=== PATIENT | male | born 1975 | race Caucasian/White ===

== ENCOUNTER 2019-11-13 12:48 | Emergency (ER) | payer OTHER, SELFPAY ==
--- NOTE | 2019-11-13 | CT_ITS ---
EXAMINATION: CT ABDOMEN AND PELVIS WITH CONTRAST CLINICAL INFORMATION: Abdominal pain COMPARISON: None TECHNIQUE: Multidetector volumetric images were obtained from the superior aspect of the liver through the pubic symphysis following administration 85 mL of Omnipaque 350 intravenous contrast. Sagittal and coronal reformatted images were obtained on the technologist's workstation. Oral contrast: No This CT examination was performed using dose optimization techniques as appropriate, variously including the following: *Automated exposure control *Adjustment of mA and/or kV according to patient size (this includes techniques or standardized protocols for targeted exams where dose is matched to indication/reason for exam; i.e. extremities or head) *Use of iterative reconstruction technique DLP: 430 mGy-cm FINDINGS: LUNG BASES: The visualized lung bases are unremarkable. LIVER, GALLBLADDER, AND BILIARY TREE: The liver is normal in size, shape, and attenuation. No focal hepatic lesion or biliary ductal dilatation is present. The gallbladder is unremarkable with no evidence of radiopaque gallstones, gallbladder wall thickening, or obvious pericholecystic inflammatory changes. PANCREAS: Unremarkable. SPLEEN: Unremarkable. ADRENAL GLANDS: Unremarkable. KIDNEYS AND URETERS: The kidneys are normal in size, shape, and attenuation. No hydronephrosis, hydroureter, or calculi seen. No perinephric stranding. BLADDER: Unremarkable. GASTROINTESTINAL TRACT: The small and large bowel are unremarkable. The appendix is unremarkable. ABDOMINAL WALL: No significant hernia is appreciated. LYMPH NODES: Normal. VASCULAR: Unremarkable. PELVIC VISCERA: Unremarkable. OSSEOUS STRUCTURES: Multilevel degenerative spondylosis of the dorsal spine. IMPRESSION: No acute abnormality CT scan abdomen pelvis.
[2019-11-13 13:50] VITALS: BP 105/71; PULSE 64; RESP 18; TEMP 37.2; O2SAT 100; BMI 25.0
[2019-11-13 16:23] VITALS: BP 122/62; PULSE 55; RESP 16
[2019-11-13 16:35] LABS: MANUAL DIFF FLAG NO
[2019-11-13 16:36] LABS: Basophils Percent Auto 0.3 % (0-2); Eosinophils Absolute Auto 0.1 X10*3/uL (0.0-0.4); Eosinophils Percent Auto 1.4 % (0-4); Hematocrit 49.3 % (42-52); Hemoglobin 16.2 g/dl (14.0-18.0); Imm Gran Abs Auto 0.02 X10*3/uL (0.00-0.03); Imm Gran Pct Auto 0.3 % (0.0-0.4); Lymphocytes Absolute Auto 2.1 X10*3/uL (1.2-4.9); Mean Corpuscular HGB Conc 32.9 g/dl (31.0-36.0); Mean Corpuscular Volume 94.3 fL (80-98); Mean Platelet Volume 11.8 fL (9.4-12.4); Monocytes Absolute Auto 0.5 X10*3/uL (0.1-1.2); Monocytes Percent Auto 8.2 % (2-11); Neutrophils Absolute Auto 3.9 X10*3/uL (2.0-8.3); Neutrophils Percent Auto 58.8 % (45-73); Platelet Count 165 X10*3/uL (160-400); Red Blood Count 5.23 X10*6/uL (4.60-5.80); Red Cell Distribution Width 12.5 % (11.0-16.0); White Blood Count 6.6 X10*3/uL (4.8-10.8)
[2019-11-13] MEDS: 0.9 % Sodium Chloride 1,000 ML 999 ML IVCONT (16:55)
[2019-11-13] MEDS: Ketorolac Tromethamine 15 MG/ML VIAL IV (16:55)
--- NOTE | 2019-11-13 17:02 | ED_ITS ---
HPI - General Adult General Chief complaint: General Medical Stated complaint: ABD PAIN Time Seen by Provider: 11/13/19 15:55 Source: patient Mode of arrival: ambulatory Limitations: language barrier (Senegalese-speaking) History of Present Illness HPI narrative: 44yoM c no PMHx presenting to the ED with complaints of headaches, body aches, back pain, abdominal pain for 1 week worse today. With associated chills. Denies any fevers, nausea / vomiting, neck pain or stiffness, chest pain or shortness of breath, cough, sore throat or nasal congestion, diarrhea or constipation, dysuria, hematuria, penile discharge or any other symptoms complaints or concerns at this time. Denies any sick contacts. Denies recent travel. Related Data Previous Rx's Medication Instructions Recorded cyclobenzaprine 10 mg PO TID PRN #10 tab 11/13/19 naproxen 500 mg PO BID PRN #14 tab 11/13/19 Allergies Allergy/AdvReac Type Severity Reaction Status Date / Time No Known Allergies Allergy Verified 11/13/19 13:49 [No Known Allergies*] Review of Systems Review of Systems: Yes all other systems are reviewed and are negative Constitutional: Constitutional: Reports as per HPI, Reports body ache(s), Reports chills, Denies excessive sweating, Denies fatigue, Denies fever(s), Reports headache(s), Denies lethargy, Denies malaise, Denies poor appetite and Denies weakness Eyes: Eyes: Reports as per HPI and Denies change in vision ENT: Reports as per HPI, Denies dysphagia, Denies dizziness, Denies ear discharge, Reports headache(s), Denies hearing loss, Denies nasal congestion, Denies nasal discharge, Denies neck pain, Denies nose pain, Denies odynophagia, Denies sinus pressure, Denies sore throat and Denies throat swelling Cardiovascular: Cardiovascular: Reports as per HPI, Denies Abdominal Distension, Denies cool extremities, Denies painful fingertips, Denies chest pain, Denies syncope, Denies rapid heart rate, Denies pedal edema, Denies edema, Denies leg edema, Denies lightheadedness, Denies radiating jaw, neck or arm pain, Denies palpitations, Denies dyspnea, Denies dyspnea on exertion, Denies orthopnea and Denies paroxysmal nocturnal dyspnea Respiratory: Respiratory: Reports as per HPI, Denies chest congestion, Denies cough, Denies dyspnea, Denies dyspnea on exertion and Denies wheezing Gastrointestinal: Gastrointestinal: Reports as per HPI, Denies belching, Denies melena, Denies bloating, Denies hematochezia, Denies change in bowel habits, Denies tenesmus, Denies change in stool character, Denies constipation, Denies GI cramping, Denies dysphagia, Denies excessive flatus, Denies early satiety, Denies dyspepsia, Denies heartburn, Denies diarrhea, Denies nausea, Denies odynophagia, Denies vomiting and Denies hematemesis Genitourinary: Genitourinary: Reports as per HPI, Denies hematospermia, Denies hematuria, Denies oliguria, Denies difficulty urinating, Denies difficulty with ejaculations, Denies erectile dysfunction, Denies genital lesions, Denies genital pain, Denies dysuria, Denies flank pain, Denies nocturia, Denies painful ejaculations, Denies penile discharge, Denies scrotal swelling, Denies testicular mass, Denies testicular pain, Denies urinary frequency, Denies urinary hesitancy, Denies urinary incontinence and Denies urinary urgency Musculoskeletal: Musculoskeletal: Reports as per HPI, Denies back pain, Denies atrophy, Denies deformity, Denies joint swelling, Reports limited range of motion (to r shoulder due to pain ), Denies loss of height, Denies muscle weakness, Denies neck pain, Denies numbness, Denies radiating pain into limb, Denies stiffness and Denies tingling Integumentary/Breasts: Skin/Breast: Reports as per HPI Neurologic: Reports as per HPI, Denies dizziness, Denies syncope, Reports headache(s), Denies numbness, Denies tingling and Denies weakness Psychiatric: Psychiatric: Reports as per HPI Endocrine: Endocrine: Reports as per HPI, Denies excessive sweating, Denies fatigue and Denies palpitations Allergic/Immunologic: Allergic/Immunologic: Reports as per HPI, Denies throat swelling and Denies wheezing PMFSH Past Medical History Attestation statement: The following information was validated with the patient. Social History Social History Alcohol intake: never Smoking Status: Former smoker Use of substances other than those prescribed or required for medical reasons: No Advance Directives: No Advance Directives Information Provided: Yes Physical Exam Vital Signs and I&O and Narrative: Vital Signs and I&O: Vital Signs Temp 98.9 F 11/13/19 13:50 Pulse 55 11/13/19 16:23 Resp 16 11/13/19 16:23 BP 122/62 11/13/19 16:23 Pulse Ox 100 11/13/19 13:50 Intake & Output 11/12/19 11/13/19 11/13/19 18:59 06:59 18:59 Weight 68.039 kg Body Mass Index 25.0 Const: General: cooperative, healthy appearing, comfortable, no acute distress, well developed, alert, awake and Physically active Nutritional Appearance: average body habitus and well nourished [place] entation/consciousness: patient oriented x3 Limitations: no limitations HENMT: Head: Yes normal to inspection, Yes No palpable skull fracture present, Yes normocephalic and Yes atraumatic Ears: hearing grossly normal bilaterally General nose exam: Normal external nose present Face and sinus: Yes normal facial exam Mouth: moist mucous membranes Eyes: General: appearance normal, both eyes and all related structures Visual Bautista: normal visual bautista by confrontation Alignment and Position: alignment normal Periorbital: periorbital findings normal Eyelids: Yes eyelids normal Conjunctivae: conjunctivae normal Sclerae: sclerae normal Pupils: Equal, round and reactive pupils present EOM: EOMs intact bilaterally Neck: Neck: Yes normal visual inspection, Yes full ROM, Yes no lymphadenopathy, Yes no meningeal signs, Yes trachea midline and Yes supple Chest: Chest palpation & inspection: normal inspection of the chest Resp: Effort & Inspection: normal respiratory effort and able to speak in complete sentences Auscultation: clear to auscultation bilaterally, no crackles, no rales, no rhonchi and no wheezes Cardio: Rate: regular rate Rhythm: regular rhythm Heart sounds: S1 normal heart sound present and S2 normal heart sound present Peripheral pulses: Peripheral pulses 2+ throughout GI: Inspection: Yes normal to inspection Palpation (GI): Soft to palpation, Tenderness to palpation present (GI) ( Diffusely) not at McBurney's point, Kc's sign negative, obturator sign negative, psoas sign negative, with no rebound tenderness and Rovsing's sign negative and No hepatosplenomegaly present Percussion: Yes normal to percussion Auscultation: normal bowel sounds : General: Yes no CVA tenderness Back/Spine/Pelvis: Back: no CVA tenderness Cervical Spine: normal cervical lordosis and cervical ROM normal Thoracic/Lumbar Spine: thoracic and lumbar spine normal to inspection and thoraco-lumbar ROM normal Skin: General skin exam: no rashes or lesions noted, elasticity normal and t urgor normal Trauma: no lacerations or abrasions Wounds: no wounds Hair: normal Nails: normal Neuro: General: patient oriented x3 and no meningeal signs Cranial nerves: Yes CN's II-XII intact bilaterally and Yes Equal, round and reactive pupils present Cognition (Neuro): normal cognition Gait exam (Neuro): Normal gait present Motor exam (neuro): 5/5 motor strength present throughout Extrem: General: Yes normal to inspection, Yes full ROM, Yes capillary refill normal, Yes no clubbing, cyanosis or edema, No no pedal edema, No no calf tenderness, Yes normal gait and No edema Right upper extremity: normal to inspection, full ROM and normal capillary refill; no edema Left upper extremity: normal to inspection, full ROM and normal capillary refill; no edema Right lower extremity: normal to inspection, full ROM and normal capillary refill; no edema Left lower extremity: normal to inspection, full ROM and normal capillary refill; no edema Psych: Appearance: grossly normal and well kempt Mental Status: mental status grossly normal Speech and movement: Normal speech and movement present and Clear speech present Affect: normal affect Attitude: cooperative Thought process: Normal thought process present Thought content: Normal thought content present Insight: Good insight present (Psych) Judgement: Good judgement present (Psych) Course Course Course Narrative: All labs within normal limits. CT scan of abdomen pelvis within normal limits no acute processes noted. UA within normal limits no evidence of UTI. Will DC home with symptomatic treatment along with instructions to return if any new or worsening symptoms and to follow up with primary care provider. Patient understands agrees with this plan. I offered Covid 19 swab testing although patient refused. Medical Decision Making MDM Narrative Medical decision making narrative: 44yoM c no PMHx presenting to the ED with complaints of headaches, body aches, back pain, abdominal pain for 1 week worse today. With associated chills. Denies any fevers, nausea / vomiting, neck pain or stiffness, chest pain or shortness of breath, cough, sore throat or nasal congestion, diarrhea or constipation, dysuria, hematuria, penile discharge or any other symptoms complaints or concerns at this time. Denies any sick contacts. Denies recent travel. - Concern for Viral Syndrome vs cholelithiasis vs appendicitis. - Plan: Labs, CT scan of abd/pelvis c IV contrast. UA. Provide IVF's and [place] l for symptomatic relief Then re-evaluate. Lab Data Result diagrams: 11/13/19 16:31 11/13/19 16:31 Labs: Lab Results 11/13/19 11/13/19 11/13/19 Range/Units 16:31 16:31 16:31 WBC 6.6 (4.8-10.8) X10*3/uL RBC 5.23 (4.60-5.80) X10*6/uL Hgb 16.2 (14.0-18.0) g/dl Hct 49.3 (42-52) % MCV 94.3 (80-98) fL MCH 31.0 (27.0-33.0) pg MCHC 32.9 (31.0-36.0) g/dl RDW 12.5 (11.0-16.0) % Plt Count 165 (160-400) X10*3/uL MPV 11.8 (9.4-12.4) fL Immature Gran % (Auto) 0.3 (0.0-0.4) % Neut % (Auto) 58.8 (45-73) % Lymph % (Auto) 31.0 (20-40) % [place] % (Auto) 8.2 (2-11) % Eos % (Auto) 1.4 (0-4) % Baso % (Auto) 0.3 (0-2) % Neut # (Auto) 3.9 (2.0-8.3) X10*3/uL Lymph # (Auto) 2.1 (1.2-4.9) X10*3/uL [place] # (Auto) 0.5 (0.1-1.2) X10*3/uL Eos # (Auto) 0.1 (0.0-0.4) X10*3/uL Baso # (Auto) 0.0 (0.0-0.2) X10*3/uL Abs Immat Gran (auto) 0.02 (0.00-0.03) X10*3/uL Absolute Nucleated RBC 0.000 (0.0-0.012) X10*3/uL Nucleated RBC % (auto) 0.0 (0.0-0.2) /100WBC Hold Blue Top SEE NOTE Sodium 139 (135-145) mmol/L Potassium 4.7 (3.3-5.1) mmol/l Chloride 103 (96-108) mmol/L Carbon Dioxide 27 (22-29) mmol/L Anion Gap 14 (12-20) BUN 13 (9-16) mg/dL Creatinine 0.88 (0.5-1.4) mg/dL Estim Creat Clear Calc 94.1 Estimated GFR > 60 Random Glucose 84 (60-115) mg/dL Calcium 9.8 (8.4-10.2) mg/dL Total Bilirubin 0.5 (0.0-1.0) mg/dL AST 37 (5-37) U/L ALT 43 H (0-40) U/L Alkaline Phosphatase 94 (39-117) U/L Total Protein 8.0 (6.5-8.0) g/dL Albumin 4.4 (3.5-5.0) g/dL Lipase 6 L (8-78) U/L Discharge Plan Discharge Clinical Impression: Abdominal pain in male Patient Disposition: Home, Self-Care Instructions: Abdominal Pain (ED) Prescriptions: New naproxen 500 mg tablet 500 mg PO BID PRN (Reason: pain) Qty: 14 RF: 0 cyclobenzaprine 10 mg tablet 10 mg PO TID PRN (Reason: pain) Qty: 10 RF: 0 Stand Alone Forms: Work/School Release Print Language: Senegalese
[2019-11-13 17:06] LABS: Alanine Aminotransferase 43 U/L (0-40); Albumin Level 4.4 g/dL (3.5-5.0); Alkaline Phosphatase 94 U/L (39-117); Anion Gap 14 (12-20); Aspartate Amino Transferase 37 U/L (5-37); Bilirubin Total 0.5 mg/dL (0.0-1.0); Blood Urea Nitrogen 13 mg/dL (9-16); Calcium 9.8 mg/dL (8.4-10.2); Carbon Dioxide 27 mmol/L (22-29); Chloride 103 mmol/L (96-108); Creatinine Clr Calc Pharmacy 94.1; Estimated Glomerular Filt Rate > 60; Glucose Random 84 mg/dL (60-115); Lipase 6 U/L (8-78); Potassium 4.7 mmol/l (3.3-5.1); Sodium 139 mmol/L (135-145)
[2019-11-13] MEDS: iohexoL 350 MG/ML 100 ML INFUS..BTL IV (17:24)
--- NOTE | 2019-11-13 17:25 | PC.NURSE ---
pt reports improvement in pain after medicated. waiting ct results.
== END 2019-11-13 18:30 | disposition home or self-care (01) ==
PROVIDERS: Physician Assistant Medical; Emergency Provider Emergency Medicine
DX: R10.9 Unspecified abdominal pain (principal); M54.5 Low back pain; Z87.891 Personal history of nicotine dependence; R51.9 Headache, unspecified
CPT/HCPCS: 36415; 74177; 80053; 83690; 85025; 96361; 96374; 99284; J1885

== ENCOUNTER 2020-04-28 08:20 | Emergency (ER) | payer OTHER, SELFPAY ==
[2020-04-28 09:06] VITALS: BP 122/61; PULSE 57; RESP 16; TEMP 36.4; O2SAT 100; BMI 28.0
--- NOTE | 2020-04-28 09:18 | ED_ITS ---
HPI - General Adult General Chief complaint: General Medical Stated complaint: sore throat and multiple complaints Time Seen by Provider: 04/28/20 08:56 Source: patient and family Mode of arrival: ambulatory Limitations: language barrier History of Present Illness HPI narrative: 44 y/o male presenting to the ER with 1 week of sore throat. He denies fever, chills, cough, headaches, N/V/D, abdominal pain. 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 His daughter also has a sore throat and she is getting her physical tomorrow. No known exposure to COVID-19. No difficulty with eating or drinking. He also reports bilateral hand pain R>L for the last several months. He thinks he has arthritis given his line of work. 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 He denies trauma. He denies swelling, redness or skin changes. He has full ROM of all of his fingers and both wrists but states when he uses his right hand too much he has pain in his wrist and fingers, mostly the index-pinky with intermittent tingling. He has been taking Advil intermittent with some mild improvement. In addition he report the bottom of his right foot is painful, which he attributes to his work boots. No trauma, no hx DM, no wounds. MD complaint: sore throat, hand and foot pain Onset (ago): week(s) Location: mouth, left, right and upper extremity Radiation: non-radiation Severity: moderate Quality: aching Pain Consistency: constant Relieving factors: medication Exacerbating factors: movement Associated symptoms: denies other symptoms Treatments prior to arrival: none Related Data Previous Rx's Medication Instructions Recorded cyclobenzaprine 10 mg PO TID PRN #10 tab 11/13/19 naproxen 500 mg PO BID PRN #14 tab 11/13/19 ibuprofen 600 mg PO Q8H PRN #20 tab 04/28/20 Allergies Allergy/AdvReac Type Severity Reaction Status Date / Time No Known Allergies Allergy Verified 11/13/19 13:49 [No Known Allergies*] Review of Systems Review of Systems: Constitutional: No Fever, No Chills ENT/Mouth: + sore throat, No Rhinorrhea, No Swallowing Difficulty Eyes: No Eye Pain, No Swelling, No Redness Cardiovascular: No Chest Pain, No SOB Respiratory: No Cough, No Sputum Gastrointestinal: No Nausea, No Vomiting, No Diarrhea, No abdominal Pain Musculoskeletal: +joint pain, No Myalgias Skin: No Skin Lesions, No rash Neuro: No Weakness, No Numbness Heme/Lymph: No Bruising, No Lymphadenopathy PMFSH Past Medical History Medical History (Updated 04/28/20 @ 10:06 by ZAN Hahn) No known health problems Social History Social History Alcohol intake: never Smoking Status: Current every day smoker Smoked in Last 30 Days: Yes Use of substances other than those prescribed or required for medical reasons: No Advance Directives: No Advance Directives Information Provided: No Physical Exam Vital Signs: Vital Signs: Last Vital Signs Temp 97.6 F 04/28/20 09:06 Pulse 57 04/28/20 09:06 Resp 16 04/28/20 09:06 BP 122/61 04/28/20 09:06 Pulse Ox 100 04/28/20 09:06 Body Mass Index 28.0 Appearance: Alert. Oriented X3. No acute distress. HEENT: normal external inspection, posterior oropharynx with mild erythema, mild tonsilliar swelling without exudate, uvula midline. normal TM's bilaterally. CVS: Normal heart rate and rhythm. Pulses normal. Respiratory: No respiratory distress. Skin: Skin warm and dry. Normal skin color. Normal skin turgor. No rashes. Extremities: bilateral hands/wrists are normal to inspection with full ROM of all 10 fingers and bilateral wrists, no wrist tenderness. on right hand digits 3-5 with mild tenderness of PIP joints & DIP joints, no nodules. NV intact distally, cap refill <3 seconds. 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 Neuro: Oriented X 3. No motor deficit. No sensory deficit. Course Course Course Narrative: 44 y/o male presenting with multiple complaints today: 1: sore throat x1 week. will swab for Strep and COVID. 2. bilateral hand and wrist pain, likely due to overuse, possible early arthritis. he was counseled on management and need to follow up with a PCP. 3. foot pain. right foot with minimal arch, advised to get OTC arch support to help with pain while wearing his work boots. Reevaluation(s) Reevaluation #1: COVID negative. Strep negative. Patient and counseled on results and management. All questions were answered. PCP referral given. Stable for discharge. Medical Decision Making Lab Data Labs: Lab Results 04/28/20 Range/Units 09:27 COVID-19 ([facility]) Negative (Negative) COVID-19 Clin Com See Note Critical Care Time Critical Care Time Critical Care Time: No Discharge Plan Discharge Clinical Impression: Bilateral hand pain Pharyngitis Qualifiers: Pharyngitis/tonsillitis etiology: unspecified etiology Qualified Code(s): J02.9 - Acute pharyngitis, unspecified Patient Disposition: Home, Self-Care Instructions: Arthralgia (ED) Additional Instructions: Your COVID test was NEGATIVE. Your rapid Strep test was NEGATIVE. If the culture ends up positive in the next 1-2 days we will call you and start you on antibiotics. Recommend warm salt water gargles several times per day for your sore throat. Recommend over the counter Chloraseptic spray & Cepacol lozenges to help with throat pain. Take Tylenol as needed for your symptoms. Recommend shoe orthotic inserts to support your arch. Your feet are very flat and need arch support. Any Pharmacy carries these, Recommend Dr. Sin. Wear the wrist splint on your right hand at night and as needed during the day. Take Ibuprofen as prescribed as needed for pain. Take with food. Follow up with a Primary Care Doctor. Prescriptions: New ibuprofen 600 mg tablet 600 mg PO Q8H PRN (Reason: pain) Qty: 20 RF: 0 No Action naproxen 500 mg tablet 500 mg PO BID PRN (Reason: pain) Qty: 14 RF: 0 cyclobenzaprine 10 mg tablet 10 mg PO TID PRN (Reason: pain) Qty: 10 RF: 0 Stand Alone Forms: Work/School Release
[2020-04-28 09:57] LABS: COVID-19 Test Negative (Negative)
== END 2020-04-28 10:27 | disposition home or self-care (01) ==
PROVIDERS: Physician Assistant; Emergency Provider Emergency Medicine
DX: J02.9 Acute pharyngitis, unspecified (principal); Z20.822 Contact with and (suspected) exposure to COVID-19; M79.642 Pain in left hand; M79.641 Pain in right hand; M21.41 Flat foot [pes planus] (acquired), right foot; M79.671 Pain in right foot; F17.200 Nicotine dependence, unspecified, uncomplicated
CPT/HCPCS: 29125; 36415; 87071; 87635; 87880; 99283

== ENCOUNTER 2020-05-16 08:40 | Outpatient (REF) | payer OTHER, SELFPAY | END 2020-05-16 08:41 | disposition home or self-care (01) | LOC: HO.LAB 08:40 | PROVIDERS: Visit Provider Internal Medicine | DX: Z20.822 Contact with and (suspected) exposure to COVID-19 (principal) | CPT/HCPCS: C9803; U0003; U0005 ==

== ENCOUNTER 2020-06-17 15:56 | Outpatient (REF) | payer OTHER, SELFPAY | END 2020-06-17 15:57 | disposition home or self-care (01) | LOC: HO.LAB 15:56 | PROVIDERS: Visit Provider Internal Medicine | DX: Z20.822 Contact with and (suspected) exposure to COVID-19 (principal) | CPT/HCPCS: C9803; U0003; U0005 ==

== ENCOUNTER 2020-06-24 10:35 | Outpatient (REF) | payer OTHER, SELFPAY ==
[2020-06-24 11:15] LABS: COVID-19 Test Negative (Negative)
== END 2020-06-24 10:36 | disposition home or self-care (01) ==
LOC: HO.LAB 10:35
PROVIDERS: Visit Provider Internal Medicine
DX: Z20.822 Contact with and (suspected) exposure to COVID-19 (principal)
CPT/HCPCS: 36415; 87635; C9803

== ENCOUNTER 2021-01-30 07:56 | Emergency (ER) | payer OTHER, SELFPAY ==
--- NOTE | ~2021-01-30 | XR_ITS ---
EXAMINATION: XR LUMBOSACRAL SPINE CLINICAL INFORMATION: Low back pain. COMPARISON: CT abdomen pelvis 11/13/2019. TECHNIQUE: Three views of the lumbosacral spine. FINDINGS: 5 lumbar type vertebral bodies are identified. 2 mm degenerative type retrolisthesis of L5 on S1 is noted. Moderate intervertebral disc space narrowing is present at L5-S1. Mild intervertebral disc space narrowing L4-L5. Mild multilevel anterior endplate osteophytosis of the lumbar spine with findings most present L4-L5. No arthropathic changes of the sacroiliac joints. No dystrophic soft tissue calcifications. XR/XR lumbar spine 2-3V IMPRESSION: *L5-S1 moderate intervertebral disc space narrowing and minimal degenerative retrolisthesis consistent with underlying degenerative disc disease. *L4-L5 mild intervertebral disc space narrowing suspicious for underlying degenerative disc disease.
[2021-01-30 08:03] VITALS: BP 127/62; PULSE 62; RESP 16; TEMP 36.2; O2SAT 98; BMI 27.4
--- NOTE | 2021-01-30 08:53 | ED.BACK ---
HPI - Back Pain/Injury General Chief Complaint: Back Pain/Injury Stated Complaint: back pain Time Seen by Provider: 01/30/21 08:23 Source: patient Mode of arrival: ambulatory Limitations: no limitations History of Present Illness HPI Narrative: 45-year-old male with no past medical history presents to ED for low back pain for 1 week that occurred after heavy lifting. Patient states since then having pain on movement of back and lifting anything heavy. Patient states he continue going to work which made his back pain worse due to patient will consist of heavy lifting of objects. Patient denies any urinary/bowel incontinence. Patient denies any HIV, hepatitis-C, or any other immunocompromised diseases. Patient denies any IV drug use. Patient denies any abdominal pain, nausea, vomiting, fever, chills, flank pain, dysuria, or hematuria. Related Data Previous Rx's Medication Instructions Recorded cyclobenzaprine 10 mg tablet 10 mg PO TID PRN #10 tab 11/13/19 naproxen 500 mg tablet 500 mg PO BID PRN #14 tab 11/13/19 ibuprofen 600 mg tablet 600 mg PO Q8H PRN #20 tab 04/28/20 cyclobenzaprine 10 mg tablet 10 mg PO TID PRN #18 tab 01/30/21 naproxen 500 mg tablet 500 mg PO BID PRN 10 Days #20 tab 01/30/21 Allergies Allergy/AdvReac Type Severity Reaction Status Date / Time No Known Allergies Allergy Verified 11/13/19 13:49 [No Known Allergies*] Review of Systems Review of Systems: Yes all other systems are reviewed and are negative Constitutional: Constitutional: Reports as per HPI and Reports no additional constitutional complaints Eyes: Eyes: Reports as per HPI and Reports no additional eye complaints ENT: Reports system reviewed and no additional complaints, except as documented and Reports as per HPI Cardiovascular: Cardiovascular: Reports as per HPI and Reports no additional cardiovascular complaints Respiratory: Respiratory: Reports as per HPI and Reports no additional respiratory complaints Gastrointestinal: Gastrointestinal: Reports as per HPI and Reports no additional gastrointestinal complaints Genitourinary: Genitourinary: Reports no additional male genitourinary complaints and Reports as per HPI Musculoskeletal: Musculoskeletal: Reports no additional musculoskeletal complaints, Reports as per HPI and Reports back pain Neurologic: Reports system reviewed and no additional complaints, except as documented and Reports as per HPI Psychiatric: Psychiatric: Reports no additional psychiatric complaints and Reports as per HPI [facility] Past Medical History Medical History (Updated 01/30/21 @ 10:10 by ZAN Barnes) No known health problems Social History Social History Alcohol intake: never Advance Directives: No Advance Directives Information Provided: No Physical Exam Vital Signs: Vital Signs: Last Vital Signs Temp 97.1 F 01/30/21 08:03 Pulse 62 01/30/21 08:03 Resp 16 01/30/21 08:03 BP 127/62 01/30/21 08:03 Pulse Ox 98 01/30/21 08:03 BMI result Body Mass Index 27.4 Const: General: cooperative, healthy appearing, comfortable and no acute distress Orientation/consciousness: patient oriented x3 HENMT: Head: Yes normal to inspection, Yes No palpable skull fracture present, Yes normocephalic, Yes atraumatic and No abrasion Eyes: General: appearance normal, both eyes and all related structures Neck: Neck: Yes normal visual inspection, Yes full ROM, Yes no lymphadenopathy, Yes no meningeal signs, Yes trachea midline, Yes supple, No anterior neck swelling and No tender Chest: Chest palpation & inspection: normal inspection of the chest and normal palpation of entire chest wall Resp: Effort & Inspection: normal respiratory effort and able to speak in complete sentences Cardio: Jugular venous distension: no JVD Heart sounds: S1 normal heart sound present and S2 normal heart sound present GI: Inspection: Yes normal to inspection and No abdominal wall ecchymosis Palpation (GI): Soft to palpation, not firm, nontender, no guarding and not rigid : General: No CVA tenderness and Yes no CVA tenderness Back/Spine/Pelvis: Other: Positive for pain on range of motion of back Back: no CVA tenderness, No CVA tenderness and back tenderness (bilateral paraspinous tenderness and lumbar spine tenderness) Skin: General skin exam: no rashes or lesions noted and elasticity normal Neuro: General: patient oriented x3, gait normal, no meningeal signs and CN's II-XI intact bilaterally Cranial nerves: Yes CN's II-XII intact bilaterally Extrem: General: Yes normal to inspection and Yes full ROM Psych: Appearance: grossly normal, well kempt and not disheveled Course Course Course Narrative: Lumbar spine x-ray ordered Reevaluation(s) Reevaluation #1: Lumbar x-ray shows degenerative arthritis. Patient will be discharged with pain medications. Not suspecting cauda equina syndrome or epidural abscess. Time: 10:08 MDM - Back Pain/Injury MDM Narrative Medical decision making narrative: Degenerative disc disease of spine Discharge Plan Discharge Clinical Impression: Lumbar radiculopathy, Degenerative disc disease at L5-S1 level Patient Disposition: Home, Self-Care Instructions: Lumbar Radiculopathy (ED), Degenerative Disc Disease (ED) Additional Instructions: La radiograf?a de la columna lumbar muestra jose enfermedad degenerativa del disco. Debe hacer un seguimiento con el proveedor de atenci?n primaria para que lo deriven a fisioterapia o manejo del dolor, si est? indicado. Regrese al servicio de urgencias inmediatamente si empeora el dolor de espalda, incontinencia urinaria / intestinal, par?lisis de las extremidades inferiores, dolor abdominal, n?useas, v?mitos, dolor en el costado, disuria, hematuria o cualquier otro s?ntoma que le preocupe. Prescriptions: New naproxen 500 mg tablet 500 mg PO BID PRN (Reason: pain) 10 Days Qty: 20 RF: 0 cyclobenzaprine 10 mg tablet 10 mg PO TID PRN (Reason: muscle spasm) Qty: 18 RF: 0 No Action ibuprofen 600 mg tablet 600 mg PO Q8H PRN (Reason: pain) Qty: 20 RF: 0 naproxen 500 mg tablet 500 mg PO BID PRN (Reason: pain) Qty: 14 RF: 0 cyclobenzaprine 10 mg tablet 10 mg PO TID PRN (Reason: pain) Qty: 10 RF: 0 Stand Alone Forms: Work/School Release Interventions: ED Discharge Assessment Last Done: 01/30/21 10:31 Discharge Date/Time: 01/30/21 10:32 Print Language: Chilean
== END 2021-01-30 10:32 | disposition home or self-care (01) ==
PROVIDERS: Emergency Provider Emergency Medicine
DX: M54.16 Radiculopathy, lumbar region (principal); M54.50 Low back pain, unspecified; M51.37 Other intervertebral disc degeneration, lumbosacral region
CPT/HCPCS: 72100; 99283

== ENCOUNTER 2021-02-09 11:10 | Outpatient (REF) | payer OTHER, SELFPAY ==
[2021-02-09 12:38] LABS: COVID-19 Test Positive (Negative); IDNOW Serial# 55D5AD1C
== END 2021-02-09 11:11 | disposition home or self-care (01) ==
LOC: HO.LAB 11:10
PROVIDERS: Visit Provider Internal Medicine
DX: Z20.822 Contact with and (suspected) exposure to COVID-19 (principal)
CPT/HCPCS: 36415; 87635; C9803

== ENCOUNTER 2021-04-14 11:16 | Emergency (ER) | payer OTHER, SELFPAY ==
--- NOTE | ~2021-04-14 | CT_ITS ---
EXAMINATION: CT ABDOMEN AND PELVIS WITHOUT CONTRAST CLINICAL INFORMATION: Atraumatic left flank/back pain. Rule out stone. COMPARISON: Previous CT of the abdomen and pelvis November 2019 TECHNIQUE: Multidetector volumetric imaging was performed from the superior aspect of the liver through the pubic symphysis. Sagittal and coronal reformatted images were obtained on the technologist's workstation. This CT examination was performed using dose optimization techniques as appropriate, variously including the following: *Automated exposure control *Adjustment of mA and/or kV according to patient size (this includes techniques or standardized protocols for targeted exams where dose is matched to indication/reason for exam; i.e. extremities or head) *Use of iterative reconstruction technique DLP: 558 mGy-cm FINDINGS: LUNG BASES: The visualized lung bases are unremarkable. LIVER, GALLBLADDER, AND BILIARY TREE: The liver is normal in size, shape, and attenuation. No focal hepatic lesion or biliary ductal dilatation is present. The gallbladder is unremarkable with no evidence of radiopaque gallstones, gallbladder wall thickening, or obvious pericholecystic inflammatory changes. PANCREAS: Unremarkable. SPLEEN: Unremarkable. ADRENAL GLANDS: Unremarkable. KIDNEYS AND URETERS: The kidneys are normal in size, shape, and attenuation. No hydronephrosis, hydroureter, or calculi seen. No perinephric stranding. BLADDER: Not optimally distended. GASTROINTESTINAL TRACT: The small and large bowel are unremarkable. The appendix is unremarkable. ABDOMINAL WALL: No significant hernia is appreciated. LYMPH NODES: Normal. VASCULAR: Unremarkable. PELVIC VISCERA: Unremarkable. OSSEOUS STRUCTURES: Unremarkable. CT/CT abdomen pelvis wo con IMPRESSION: Unremarkable exam. Fleischner guidelines were followed.
[2021-04-14 12:39] VITALS: BP 122/64; PULSE 67; RESP 16; TEMP 36.9; O2SAT 99; BMI 24.1
--- NOTE | 2021-04-14 14:11 | ED.BACK ---
HPI - Back Pain/Injury General Chief Complaint: Back Pain/Injury Stated Complaint: Back pain Time Seen by Provider: 04/14/21 12:52 Source: patient and family ( Significant other at bedside) Mode of arrival: ambulatory Limitations: language barrier ( Jamaican-speaking) History of Present Illness HPI Narrative: 45-year-old male with a past medical history of degenerative disc disease presenting to the ED with complaints of lower back pain /left flank pain for months. He reports that he was seen here on 01/30/2021 and was diagnosed with degenerative disc disease although he was unsure what this actual diagnosis was. He reports that he lifts a lot a heavy object at work although he is unsure this is work related. He reports that the pain is usually worse at nighttime. He denies any fevers, chills, dizziness, headaches, neck pain/ stiffness, trouble swallowing or breathing, chest pain or shortness of breath, dyspnea on exertion, orthopnea, palpitations, abdominal pain, dysuria, hematuria, abnormal penile discharge, black or bloody stools, urinary or bowel incontinence, history of IV drug use, history of HIV, history of hepatitis-C, any immune compromised diseases, or any other symptoms complaints or Concerns at this time. MD elicited complaint: back pain Pertinent past history: prior back pain Onset (ago): month(s) Timing: intermittent Severity: mild Similar Symptoms Previously: Yes Quality: aching Location: left flank and left lower back Radiation: none Exacerbating factors: movement and lifting Relieving factors: none Context: unknown Associated symptoms: denies other symptoms Work related injury: No Related Data Previous Rx's Medication Instructions Recorded cyclobenzaprine 10 mg tablet 10 mg PO TID PRN #10 tab 11/13/19 naproxen 500 mg tablet 500 mg PO BID PRN #14 tab 11/13/19 ibuprofen 600 mg tablet 600 mg PO Q8H PRN #20 tab 04/28/20 cyclobenzaprine 10 mg tablet 10 mg PO TID PRN #18 tab 01/30/21 naproxen 500 mg tablet 500 mg PO BID PRN 10 Days #20 tab 01/30/21 acetaminophen 500 mg tablet 1,000 mg PO QID PRN #14 tab 04/14/21 (Tylenol Extra Strength) cyclobenzaprine 10 mg tablet 10 mg PO Q8H PRN #14 tab 04/14/21 ibuprofen 800 mg tablet 800 mg PO Q8H PRN #14 tab 04/14/21 lidocaine 5 % topical patch 1 patch TOPICAL DAILY #15 ea 04/14/21 (Lidoderm) oxycodone 5 mg tablet 5 mg PO Q6H PRN #14 tab 04/14/21 Allergies Allergy/AdvReac Type Severity Reaction Status Date / Time No Known Allergies Allergy Verified 11/13/19 13:49 [No Known Allergies*] Review of Systems Review of Systems: Constitutional : No trauma, No Weight loss, No Fever, No Chills, ENT/Mouth : No Hearing loss, No Ear Pain, No Nasal Congestion, No Sinus Pain, No Hoarseness, No sore throat, No Rhinorrhea, No Swallowing Difficulty Cardiovascular : No Chest Pain, No SOB Respiratory : No Cough, No Dyspnea Gastrointestinal : No Nausea, No Vomiting, No Diarrhea, No abdominal Pain, No Hematochezia, No Melena Genitourinary : No Dysuria, No Urinary Frequency, No Hematuria, No Urinary or Bowel Incontinence/retention Musculoskeletal : + Back pain, No neck pain, No joint stiffness, No joint swelling Skin : No Skin Lesions, No rash or signs of infection Neuro : No Weakness, No radiation, No Numbness, No Paresthesias, No headache, no loss of bowel or bladder incontinence, no saddle anesthesia, Focal weakness, No radiation Denies history of IV drug usage. Yes all other systems are reviewed and are negative [facility] Past Medical History Attestation statement: The following information was validated with the patient. Medical History No known health problems Social History Social History Alcohol intake: never Advance Directives: No Advance Directives Information Provided: No Physical Exam Vital Signs: Vital Signs: Last Vital Signs Temp 98.5 F 04/14/21 12:39 Pulse 67 04/14/21 12:39 Resp 16 04/14/21 12:39 BP 122/64 04/14/21 12:39 Pulse Ox 99 04/14/21 12:39 BMI result Body Mass Index 24.1 vital signs have been reviewed as normal and appeared to be correct. Blood pressure normal. Heart rate normal. Respiration rate normal. Temperature normal. Oxygen saturation normal. Appearance: Alert. Oriented X3. No acute distress. Head: Normal external exam. Normocephalic. Atraumatic. No Cano signs noted. No raccoon eyes noted Eyes: PERRLA. EOMI. Conjunctiva and sclera normal. Eyelids normal. ENT: EAC normal. TM's Normal. Pharynx normal. Uvula midline. Moist mucous membranes. No trismus noted. No drooling noted. No muffled voice noted. Neck: Normal inspection. Neck supple. FROM. No adenopathy. Thyroid Normal. No meningeal signs. No neck mass noted. CVS: Normal heart rate and rhythm. Heart sound normal. No murmurs noted. Pulses normal throughout. Respiratory: No respiratory distress. Painless inspiration. Breath sounds normal. No wheezes/rales/rhonchi noted. Chest nontender. No accessory muscle usage noted or decreased air movement noted. Abdomen: Soft and nontender. Bowel sounds normal in all 4 quadrants. No distention noted. No organomegaly noted. No visible injury noted. Back: No CVA tenderness. Full range of motion noted. No obvious deformities, or edema. Mild para-spinal muscular tenderness from lumbar region to coccyx. Full ROM in back and lower extremities. 5/5 strength hip extension/flexion, abduction, adduction. Mild Lumbar pain with hip flexion against resistance. Straight leg raise test negative on right; Straight leg raise test negative on left; Reflexes normal ankle and knee bilaterally; EHL motor strength normal bilaterally. No rashes/lesion/induration/fluctuance or signs infection noted. Skin: Skin warm and dry. Normal skin color. Normal skin turgor. No rashes/lesions/lacerations noted. Extremities: No lower extremity edema. Extremities exhibit normal range of motion. Extremities nontender. Neuro: Oriented X 3. No motor deficit. No sensory deficit. Reflexes normal. Patient has a normal steady gait. Course Course Course Narrative: Pt c likely muscular pain, but could be herniated disc. Neuro exam shows no deficits. Not c/w AAA/epidural abscess/dissection.No high risk Hx (Incont, fever, immunosupp, recent surgery/LP, coag, signif trauma, wt loss, puls mass, hx/o Ca, TB, or IVDU) to warrant MRI today. Not c/w Pyelo/UTI//spinal fx. Not cauda equina syndrome. Although I did obtain a CT scan of abdomen pelvis without IV contrast evaluate for possible kidney stones or any other acute processes and CT scan of abdomen pelvis without contrast negative for any acute processes. I printed out the results and handed to the patient and his significant other at bedside. Explained to him that most likely this is muscular skeletal or could be related to his degenerative disc disease / arthritis. Therefore at this time will DC home with symptomatic treatment instructions return if any new or worsening symptoms to follow up with primary care provider. Patient understands agrees with this plan. MDM - Back Pain/Injury Medical Records Attestation: I reviewed the patient's medical records. Imaging Data CT scan abdomen pelvis without IV contrast: Attestation: I personally reviewed and interpreted this imaging study as follows: Radiologist's impression: FINDINGS: LUNG BASES: The visualized lung bases are unremarkable.? LIVER, GALLBLADDER, AND BILIARY TREE: The liver is normal in size, shape, and attenuation. No focal hepatic lesion or biliary ductal dilatation is present. The gallbladder is unremarkable with no evidence of radiopaque gallstones, gallbladder wall thickening, or obvious pericholecystic inflammatory changes.? PANCREAS: Unremarkable.? SPLEEN: Unremarkable.? ADRENAL GLANDS: Unremarkable.? KIDNEYS AND URETERS: The kidneys are normal in size, shape, and attenuation. No hydronephrosis, hydroureter, or calculi seen. No perinephric stranding. ? BLADDER: Not optimally distended. GASTROINTESTINAL TRACT: The small and large bowel are unremarkable. The appendix is unremarkable.? ABDOMINAL WALL: No significant hernia is appreciated.? LYMPH NODES: Normal. VASCULAR: Unremarkable. PELVIC VISCERA: Unremarkable.? OSSEOUS STRUCTURES: Unremarkable.? CT/CT abdomen pelvis wo con IMPRESSION: Unremarkable exam. ? Fleischner guidelines were followed. Discharge Plan Discharge Clinical Impression: Strain of lumbar region, Degenerative disc disease, lumbar Patient Disposition: Home, Self-Care Instructions: Low Back Strain (ED), Degenerative Disc Disease (ED), Lower Back Exercises (ED) Prescriptions: New cyclobenzaprine 10 mg tablet 10 mg PO Q8H PRN (Reason: Muscle spasm) Qty: 14 0RF ibuprofen 800 mg tablet 800 mg PO Q8H PRN (Reason: pain) Qty: 14 0RF acetaminophen [Tylenol Extra Strength] 500 mg tablet 1,000 mg PO QID PRN (Reason: fever or pain) Qty: 14 0RF lidocaine [Lidoderm] 5 % adhesive patch,medicated 1 patch topical DAILY Qty: 15 0RF Rx Instructions: leave on most painful area for up to 12 hrs. May be substituted oxycodone 5 mg tablet 5 mg PO Q6H PRN (Reason: pain) Qty: 14 0RF No Action ibuprofen 600 mg tablet 600 mg PO Q8H PRN (Reason: pain) Qty: 20 0RF naproxen 500 mg tablet 500 mg PO BID PRN (Reason: pain) Qty: 14 0RF cyclobenzaprine 10 mg tablet 10 mg PO TID PRN (Reason: pain) Qty: 10 0RF naproxen 500 mg tablet 500 mg PO BID PRN (Reason: pain) 10 Days Qty: 20 0RF cyclobenzaprine 10 mg tablet 10 mg PO TID PRN (Reason: muscle spasm) Qty: 18 0RF Rx Instructions: side effect is drowsiness. Do not take at work or while driving. Referrals: Physician,None [Primary Care Provider] - 2 days (your pcp) Stand Alone Forms: Work/School Release Print Language: Jamaican
== END 2021-04-14 14:20 | disposition home or self-care (01) ==
PROVIDERS: Emergency Provider Emergency Medicine Emergency Medical Services
DX: M51.36 Other intervertebral disc degeneration, lumbar region (principal); S39.012A Strain of muscle, fascia and tendon of lower back, initial encounter; X50.0XXA Overexertion from strenuous movement or load, initial encounter; Y93.89 Activity, other specified; Y92.9 Unspecified place or not applicable; Y99.9 Unspecified external cause status
CPT/HCPCS: 74176; 99282; 99284

== ENCOUNTER 2022-06-05 11:15 | Emergency (ER) | payer OTHER, SELFPAY ==
[2022-06-05 11:28] VITALS: BP 135/80; PULSE 82; RESP 18; TEMP 36.8; O2SAT 99; BMI 31.7
--- NOTE | 2022-06-05 11:31 | ED_ITS ---
HPI - General Adult General Chief complaint: Back Pain/Injury Stated complaint: r hip pain down into leg Time Seen by Provider: 06/05/22 11:36 Source: patient and RN notes reviewed Mode of arrival: ambulatory Limitations: no limitations History of Present Illness HPI narrative: This is a 46-year-old male, with a past medical history of chronic back pain, who presents emergency department with acute on chronic back pain x2 weeks. He reports an aching low back pain that radiates down his right leg. Patient denies any recent trauma, injury, falls or heavy lifting. He reports he has this same pain in past. Will denies any urinary or bowel incontinence, denies urinary retention or constipation. Denies saddle anesthesia. Denies any weakness in his lower extremities. The denies any fevers, chills, chest pain, shortness of breath, abdominal pain, dysuria, urinary urgency or frequency. No other complaints or concerns at this time. MD complaint: Back pain Onset (ago): week(s) Location: back Quality: aching Pain Consistency: constant Relieving factors: none Exacerbating factors: none Associated symptoms: denies other symptoms Treatments prior to arrival: none Related Data Previous Rx's Medication Instructions Recorded cyclobenzaprine 10 mg tablet 10 mg PO TID PRN pain #10 tabs 11/13/19 naproxen 500 mg tablet 500 mg PO BID PRN pain #14 tabs 11/13/19 ibuprofen 600 mg tablet 600 mg PO Q8H PRN pain #20 tabs 04/28/20 cyclobenzaprine 10 mg tablet 10 mg PO TID PRN muscle spasm #18 01/30/21 tabs naproxen 500 mg tablet 500 mg PO BID PRN pain 10 days #20 01/30/21 tabs acetaminophen 500 mg tablet 1,000 mg PO QID PRN fever or pain 04/14/21 (Tylenol Extra Strength) #14 tabs cyclobenzaprine 10 mg tablet 10 mg PO Q8H PRN Muscle spasm #14 04/14/21 tabs ibuprofen 800 mg tablet 800 mg PO Q8H PRN pain #14 tabs 04/14/21 lidocaine 5 % topical patch 1 patch topical DAILY pain #15 ea 04/14/21 (Lidoderm) oxycodone 5 mg tablet 5 mg PO Q6H PRN pain #14 tabs 04/14/21 cyclobenzaprine 5 mg tablet 5 mg PO BID PRN muscle spasm #20 06/05/22 tabs ibuprofen 600 mg tablet 600 mg PO Q6H PRN pain #45 tabs 06/05/22 prednisone 20 mg tablet 40 mg PO DAILY #5 tabs 06/05/22 Allergies Allergy/AdvReac Type Severity Reaction Status Date / Time No Known Allergies Allergy Verified 11/13/19 13:49 [No Known Allergies*] Review of Systems Review of Systems: Yes all other systems are reviewed and are negative [facility] Past Medical History Medical History No known health problems Social History Social History Alcohol intake: never Advance Directives: No Advance Directives Information Provided: No Physical Exam ED Vital Signs: Vital Signs - 24 hr 06/05/22 11:28 Temperature 98.2 F Pulse Rate 82 Respiratory Rate 18 Blood Pressure 135/80 Pulse Oximetry 99 Oxygen Delivery Method Room Air BMI result Body Mass Index 31.7 General: Awake, alert, and oriented X3. No acute distress. Ambulatory with steady gait. HEENT: Normal inspection CVS: Normal heart rate and rhythm. Pulses normal. Respiratory: No respiratory distress Skin: Warm, dry, no rashes noted to exposed skin. Normal skin color. Normal skin turgor. Extremities: No c-spine, t-spine or l-spine midline spine tenderness. Mild TTP to the right low back and SI joint. Neuro: Oriented X 3. No motor deficit. No sensory deficit. Medical Decision Making Medical Decision Making MDM Narrative: 46 y/o M, hx of chronic low back pain, who presents to the ER for acute on chronic back pain x 2 weeks. No recent trauma or injury. Has had xrays in 2020 showing degenerative changes. Patient has had no recent trauma or injury, no red flag back symptoms. No need for repeat imaging at this time. Symptoms consistent with sciatica. Will treat with steriods, muscle relaxers, and ibuprofen. Recommended to F/u with PCP for further management as he may benefit getting MRI and/or PT. Discussed this with patient. Patient understands and agrees with plan. VSS. No concerns or questions at this time. Patient stable for discharge. Differential Diagnosis Differential Diagnoses: The differential diagnosis associated with the presentation includes Sciatica, lumbar strain, lumbar sprain, lumbar spasm, Cauda equina syndrome- lesslikely External Record Review External record reviewed: Prior outpatient radiology review of previous x-ray report from 2020 Discharge Plan Discharge Clinical Impression: Sciatica Patient Disposition: Home, Self-Care Instructions: Sciatica (ED), Acute Low Back Pain (ED), Lower Back Exercises (ED) Additional Instructions: Take prescribed medications as directed. Please be aware that cyclobenzaprine may cause drowsiness, do not drink alcohol or drive while taking this medication. Gentle stretching and strengthening can help alleviate symptoms. You need to follow-up with your primary care physician as they may want to refer you to physical therapy for further management her symptoms. Any new or worsening symptoms occur please return for re-evaluation. Dewitt los medicamentos recetados seg?n las indicaciones. Tenga en cuenta que la ciclobenzaprina puede causar somnolencia, no concetta alcohol ni conduzca mientras destiney shahnaz medicamento. El estiramiento y el fortalecimiento suaves pueden ayudar a aliviar los s?ntomas. Debe hacer un seguimiento con kaur m?dico de atenci?n primaria, ya que es posible que desee derivarlo a fisioterapia para controlar mejor chau s?ntomas. Si se presentan s?ntomas nuevos o que empeoran, regrese para jose reevaluaci?n. Prescriptions: New prednisone 20 mg tablet 40 mg PO DAILY Qty: 5 0RF cyclobenzaprine 5 mg tablet 5 mg PO BID PRN (Reason: muscle spasm) Qty: 20 0RF ibuprofen 600 mg tablet 600 mg PO Q6H PRN (Reason: pain) Qty: 45 0RF No Action ibuprofen 600 mg tablet 600 mg PO Q8H PRN (Reason: pain) Qty: 20 0RF naproxen 500 mg tablet 500 mg PO BID PRN (Reason: pain) Qty: 14 0RF cyclobenzaprine 10 mg tablet 10 mg PO TID PRN (Reason: pain) Qty: 10 0RF cyclobenzaprine 10 mg tablet 10 mg PO Q8H PRN (Reason: Muscle spasm) Qty: 14 0RF ibuprofen 800 mg tablet 800 mg PO Q8H PRN (Reason: pain) Qty: 14 0RF acetaminophen [Tylenol Extra Strength] 500 mg tablet 1,000 mg PO QID PRN (Reason: fever or pain) Qty: 14 0RF lidocaine [Lidoderm] 5 % adhesive patch,medicated 1 patch topical DAILY Qty: 15 0RF Rx Instructions: leave on most painful area for up to 12 hrs. May be substituted oxycodone 5 mg tablet 5 mg PO Q6H PRN (Reason: pain) Qty: 14 0RF naproxen 500 mg tablet 500 mg PO BID PRN (Reason: pain) 10 Days Qty: 20 0RF cyclobenzaprine 10 mg tablet 10 mg PO TID PRN (Reason: muscle spasm) Qty: 18 0RF Rx Instructions: side effect is drowsiness. Do not take at work or while driving. Stand Alone Forms: Work/School Release Interventions: ED Discharge Assessment Last Done: 06/05/22 11:44 Discharge Date/Time: 06/05/22 11:59 Print Language: Hebrew
== END 2022-06-05 11:59 | disposition home or self-care (01) ==
LOC: HO.ED 11:46
PROVIDERS: Emergency Provider Emergency Medicine
DX: M54.41 Lumbago with sciatica, right side (principal)
CPT/HCPCS: 99282; 99283

== ENCOUNTER 2022-06-29 11:46 | Outpatient (REF) | payer MEDICAID, SELFPAY ==
--- NOTE | ~2022-06-29 | XR_ITS ---
EXAMINATION: XR LUMBOSACRAL SPINE CLINICAL INFORMATION: Lower back pain and right sciatica. COMPARISON: Radiographs dated 01/30/2021. TECHNIQUE: AP and lateral views of the lumbar spine and lateral view of the lumbosacral junction. FINDINGS: Vertebral body heights are normal. At L5-S1, a 4 mm anterolisthesis is seen. The remaining disc spaces are well-maintained. No acute fracture or spondylolisthesis is seen. There is multi-level lumbar spondylosis. The posterior elements are intact. The paravertebral soft tissues are unremarkable. XR/XR lumbar spine 2-3V IMPRESSION: 1. There is mild to moderate degenerative disc disease at L5-S1. 2. There is multi-level lumbar spondylosis.
== END 2022-06-29 11:47 | disposition home or self-care (01) ==
LOC: HO.HHCX 11:46
PROVIDERS: Visit Provider Internal Medicine
DX: M54.41 Lumbago with sciatica, right side (principal); G89.29 Other chronic pain
CPT/HCPCS: 72100

== ENCOUNTER 2022-08-18 16:09 | Outpatient (REF) | payer MEDICAID, SELFPAY ==
[2022-08-20 06:19] LABS: ~HepC Num1 0.07 S/CO (0.00-0.79); ~Hepatitis C Antibody Nonreactive (Nonreactive)
== END 2022-08-18 16:10 | disposition home or self-care (01) ==
LOC: HO.HHCL 16:09
PROVIDERS: Visit Provider Internal Medicine
DX: R79.89 Other specified abnormal findings of blood chemistry (principal)
CPT/HCPCS: 36415; 86803

== ENCOUNTER 2022-11-04 18:57 | Outpatient (REF) | payer MEDICAID, SELFPAY ==
[2022-11-05 15:43] LABS: H Pylori Breath Test Negative (Negative)
== END 2022-11-04 18:58 | disposition home or self-care (01) ==
LOC: HO.HHCLNP 18:57
PROVIDERS: Visit Provider Internal Medicine
DX: A04.8 Other specified bacterial intestinal infections (principal)
CPT/HCPCS: 83013

== ENCOUNTER 2024-06-06 10:50 | Outpatient (REF) | payer MEDICAID, SELFPAY ==
--- OUTSIDE RECORDS SUMMARY | 2024-06-06 12:22 | XMS_ITS | Encounter Summary ---
Author Organization [employer] Address [address] [place] [address] Care Team Providers Care Graphics Coordinator Name Role Phone Autumn Wilson MD Primary Care Provide r Encounter Details Date Type Department Care Team (Late st Contact Info) Description 06/06/2024 Orders Only [facility] [address] [place] [address] Mary Enriquez LPN Screening examination for pulmonary tuberculosis (Primary Dx) Social History Tobacco Use Types Packs/Day Years Used Date Smoking Tobacco: Every Day Cigarettes Passive Smoke Exposure: Current Smokeless Tobacco: Never Depression Answer Date Recorded Patient Health Questionnaire-9 Score 0 06/29/2022 Housing Stability Answer Date Recorded What is your housing situation today? I have leonie pinon 11/29/[address] you li ve. Do you have problems with any of the following? None of the above 11/29/2022 Food Insecurity Answer Date Recorded Within the past 12 months, y ou worried that your food would run out before you got money to buy more: Never True 11/29/2022 Within the past 12 months,th e food you bought just didn't last and you didn't have enough money to get more: Never True Transportation Answer Date Recorded In the past 12 months, has l ack of transportation kept you from medical appts, meetings, work or from getting things needed for daily living? No 11/29/2022 Utilities Answer Date Recorded In the past 12 months, has t he electric, gas, oil or water company threatened to shut off services in your home? No 11/29/2022 Depression Answer Date Recorded Patient Health Questionnaire-2 Score 0 06/29/2022 Sex and Gender Information Value Date Recorded Sex Assigned at Male 06/29/2022 9:40 AM EDT Legal Sex Male 9:36 AM EDT Gender Identity Male 06/29/2022 9:40 AM EDT Sexual Orientation Straight 06/29/2022 9: 40 AM EDT documented as of this encounter Plan of Treatment Upcoming Encounters Date Type Department Care Team (Late st Contact Info) Description 06/29/2024 2:00 PM EDT Office Visit [facility] [address] [place] [address] Autumn Wilson MD [address] [place] [phone] Scheduled Orders Name Type Priority Associated Diagnoses Orde r Schedule T-SPOT??.TB Lab Routine Screening examination for pulmonary tuberculosis Expected: 06/06/2024 (Approximate), Expires: 06/06/2025 documented as of this encounter Visit Diagnoses Diagnosis Screening examination for pulmonary tuberculosis- Primary documented in this encounter Additional Health Concerns Assessment Noted Time PHQ-9 Depression Total Score: 0 06/30/19 10:22 AM EDT documented as of this encounter Care Teams Graphics Coordinator Relationship Specialty Start Date End Date Autumn Wilson MD [address] [place] [phone] PCP - General Internal Medicine 06/29/22 documented as of this encounter
--- OUTSIDE RECORDS SUMMARY | 2024-06-06 12:22 | XMS_ITS | Clinical Summary ---
Author Organization [id number] Address [address] [place] [address] Care Team Providers Care Security Rover Name Role Phone Autumn Wilson MD Primary Care Provide r Allergies No known active allergies Medications aluminum-magnesi um hydroxide-simeth icone (Maalox) 200-200-20 MG/5ML suspensionIndica tions:Epigastric pain Take 30 mL by mouth before breakfast, before lunch, before evening meal, and at bedtime. 1680 mL 3 Active hydrOXYzine pamoate (Vistaril) 25 MG capsuleIndicatio ns:Pruritus Take 1 capsule (25 mg) by mouth every 6 (six) hours if needed for itching for up to 10 days. 30 capsule 3 Active lidocaine (Lidoderm) 5 % patchIndications :Chronic bilateral low back pain with right-sided sciatica Apply 1 patch topically in the morning. Remove & discard patch within 12 hours or as directed by MD. 30 patch 1 3 Active amitriptyline (Elavil) 10 MG tabletIndication s:Chronic migraine without aura without status migrainosus, not intractable Take 1 tablet (10 mg) by mouth at bedtime. 30 tablet 1 4 Active omeprazole (PriLOSEC) [address] capsuleIndicatio ns:Epigastric pain Take 1 capsule (20 mg) by mouth before breakfast. Do not crush or chew. 30 capsule 11 4 Active nicotine (Nicoderm CQ) 14 MG/24HR patch Place 1 patch on the skin 1 (one) time each day at the same time. 42 patch 4 Active nicotine (Nicoderm CQ) 7 MG/24HR patch Place 1 patch on the skin 1 (one) time each day at the same time. 14 patch 4 Active acetaminophen (Tylenol) 500 MG tablet Take 2 tablets (1,000 mg) by mouth every 6 (six) hours if needed for moderate pain or fever for up to 25 doses. 30 tablet 4 Active ibuprofen 400 MG tablet Take 1 tablet (400 mg) by mouth every 8 (eight) hours if needed for moderate pain or fever for up to 30 doses. 30 tablet 4 Active nicotine polacrilex (Commit) 2 MG lozenge DISSOLVE 1 LOZENGE EVERY 2 HOURS IN THE MOUTH IF NEEDED FOR SMOKING CESSATION 100 lozenge 4 Active Active Problems Problem Noted Date Diagnosed Date Tobacco dependence 07/01/2023 Helicobacter pylori infection 08/30/2022 Assessment & Plan (11/04/2022 1:00 PM EDT): Urea breath test to be done to ensure h pyori erradication Assessment & Plan (08/30/2022 11:56 AM EDT): C/w omeprazole BID I will repeat H pylori next appointment Elevated LFTs 08/30/2022 Assessment & Plan (08/30/2022 11:57 AM EDT): Diet counseling done patient will be call with US report Pruritus 08/30/2022 Assessment & Plan (11/04/2022 1:00 PM EDT): Referral to allergy specialists done on 08/30/22 information provided Assessment & Plan (08/30/2022 11:57 AM EDT): Friendship of hydroxyzine Allergies 08/30/2022 Epigastric pain 06/29/2022 Assessment & Plan (04/19/2023 12:18 PM EDT): I advise patient to avoid NSAIDs, spicy and acid food, I advise to eat at the same time every day, I advise to elevate the head of the bed and take medications as prescribe Chronic bilateral low back pain with right-sided sciatica 06/29/2022 Assessment & Plan (05/20/2023 4:19 PM EDT): PT referral done again I advise to roller picker his medications Assessment & Plan (04/19/2023 12:20 PM EDT): Apply heat on affected area Acetaminophen and flexeril prescriptions renewed, again I explain flexeril can cause somnolence and not to use it if he needs to drive or do activities that requires his attention PT referral printed and gave to patient Assessment & Plan (11/04/2022 1:01 PM EDT): Patient referred to reeling and tubing machine operator on 08/30/22 information to be provided Chronic migraine without aur a without status migrainosus, not intractable 06/29/2022 Assessment & Plan (05/20/2023 4:19 PM EDT): I advise to avoid migraine triggers like red wine, chocolate, cheese, strong perfumes I advise to roller picker his medication Assessment & Plan (04/19/2023 12:20 PM EDT): I advise to avoid migraine triggers like red wine, chocolate, cheese, strong perfumes I will start I'm on amitryptiline 10mg at bed time RTC 4 weeks televisit Encounters Date Type Department Care Team Description 06/06/2024 Orders Only [facility] [address] [place] [address] Mary Enriquez LPN Screening examination for pulmonary tuberculosis (Primary Dx) 04/20/2024 Population Health Risk Score [facility] [address] [phone] Provider, Population Health Generic 03/14/2024 Outside Procedure [facility] [address] [place] [address] Raj, Mirtha, OD Presbyopia (Primary Dx) 03/12/2024 9:15 AM EST Office Visit [facility] [address] [place] [address] Mirtha Anthony, OD Myopia of both eyes (Primary Dx) from Last 3 Months Immunizations Name Administration Dates Next Due Influenza injectable quadrivalent preservative f ree 11/04/2022 Social History Tobacco Use Types Packs/Day Years Used Date Smoking Tobacco: Every Day Cigarettes Passive Smoke Exposure: Current Smokeless Tobacco: Never Tobacco Cessation:Ready to Q uit: Not Asked; Counseling Given: Not Answered Depression Answer Date Recorded Patient Health Questionnaire-9 [...] Orientation Straight 06/29/2022 9: 40 AM EDT Last Filed Vital Signs Vital Sign Reading Time Taken Comments Blood Pressure 151/90 09/12/2023 1:52 PM EDT Pulse 92 09/12/2023 1:52 PM EDT Temperature 36.8 ??C (98.3 ??F) 09/12/2023 1:52 PM ED T Respiratory Rate 17 09/12/2023 1:52 PM EDT Oxygen Saturation 99% 09/12/2023 1:52 PM EDT Inhaled Oxygen Concentration - - Weight 66.1 kg (145 lb 12.8 oz) 09/12/2023 1:52 PM EDT Height 165.1 cm (5' 5 ) 07/01/2023 8:40 AM EDT Body Mass Index 24.26 07/01/2023 8:40 AM EDT Plan of Treatment Upcoming Encounters Date Type Department Care Team (Late st Contact Info) Description 06/29/2024 2:00 PM EDT Office Visit [facility] [address] [place], [place] [phone] Autumn Wilson MD [address] [place], [place] [phone] Health Maintenance Due Date Last Done Comments CT Colonography 1976 Colonoscopy 1976 Colorectal Cancer Screening 1976 FIT DNA/Cologuard 1976 FIT 1976 FOBT 1976 HIV Screening 1976 Sigmoidoscopy 1976 Alcohol/Substance Use Screening 1988 Family Planning (PISQ) 06/12/1991 DTaP/Tdap/Td Vaccines (1 - Tdap) 06/12/1995 Hepatitis B Vaccines (1 of 3 - 19+ 3-dose series) 06/12/1995 Pneumococcal Vaccine: Pediatrics (0 to 5 Years) and At-Risk Patients (6 to 49) Years) (1 of 2 - PCV) 06/12/1995 Depression Screening 06/30/2023 06/29/2022, 06/29/2022 COVID-19 Vaccine (1 - 2023-2 5 season) 2023 Influenza Vaccine (#1) 2023 11/04/2022 SDOH Screening 04/11/2024 04/12/2023 Tobacco Screening 02/08/2025 02/09/2024 Zoster Vaccines (1 of 2) 2026 Lipid Panel 06/30/2027 06/29/2022 RSV Patients and Patients Aged 60 years or older (1 - 1-dose 75+ series) 06/12/2051 Hepatitis C Screening Completed 08/18/2022 , 08/05/2022 HIB Vaccines Aged Out No longer eligi ble based on patient's age to complete this topic HPV Vaccines Aged Out No longer eligi ble based on patient's age to complete this topic Hepatitis A Vaccines Aged Out No long er eligible based on patient's age to complete this topic IPV Vaccines Aged Out No longer eligi ble based on patient's age to complete this topic Meningococcal Vaccine Aged Out No zeeshan estuardo eligible based on patient's age to complete this topic RSV under 20 months Aged Out No longe r eligible based on patient's age to complete this topic Rotavirus Vaccines Aged Out No longer eligible based on patient's age to complete this topic Procedures Procedure Name Priority Date/Time Associated Diagnosis Comments HEPATITIS C ANTIBODY REFLEX Routine 08/18/2022 4:12 PM EDT LIPID PANEL, STANDARD Routine 06/29/2022 11:33 AM EDT Epigastric pain from Last 3 Months or Most Recently Relevant to Health Maintenance Results * Hepatitis C Antibody Reflex (08/18/2022 4:12 PM EDT) Hepatitis C Antibody Nonreactive Nonreactive [facility] Comment:Antibodies to HCV no t detected; does not exclude early acuteHCV infection. 08/18/2022 4:12 PM EDT 08/18/2022 5:37 PM EDT [facility] External Provider LAB BLO OD ORDERABLES Final Result Performing Organization Address City/State/[facility] Co de Phone Number [facility] [address] [place] [phone] * (ABNORMAL) Lipid Panel, Standard (06/29/2022 11:33 AM EDT) Cholesterol, Total 206(H) <200 mg/dL [facility] HDL Cholesterol 36(L) > OR = 40 mg/dL [facility] Triglycerides 118 <150 mg/dL [facility] LDL Cholesterol 146(H) mg/dL (calc) [facility] Comment: Reference range: <100 Desirable range <100 mg/dL for primary prevention; ?? <70 mg/dL for patients with CHD or diabetic patients with > or = 2 CHD risk factors. LDL-C is now calculated using the Олег calculation, which is a validated novel method providing better accuracy than the Friedewald equation in the estimation of LDL-C. Nicanor ANNE et al. TERRELL. 2013;310(19): 4964-2225 (http://education.[employer]/faq/AHO701) Chol/HDLC Ratio 5.7(H) <5.0 (calc) [facility] Non-HDL Cholesterol 170(H) <130 mg/dL (calc) [facility] Comment: For patients with diabetes plus 1 major ASCVD risk factor, treating to a non-HDL-C goal of <100 mg/dL (LDL-C of <70 mg/dL) is considered a therapeutic option. Blood Venous blood specimen / Unknown 06/29/2022 11:33 AM EDT 06/29/2022 11:36 AM EDT Narrative [facility] - 06/30/2022 10:59 AM EDT FASTING:YES COLLECTION KIT GIVEN TO PATIENT. PATIENT ADVISED TO RETURN. FASTING: YES Autumn Calderon MD LAB BLOOD ORDERABLES Final Result [facility] [address], [place] [address] [facility] [address] [place] [phone] from Last 3 Months or Most Recently Relevant to Health Maintenance Insurance [facility] C3 HSN FULL Care Teams Security Rover Relationship Specialty Start Date End Date Autumn Wilson MD [address] [place] [address] PCP - General Internal Medicine 06/29/22
[2024-06-09 11:13] LABS: TS Negative Control Passed; TS Panel A 0; TS Panel B 0; TS Positive Control Passed; TSpotTB Negative (Negative)
== END 2024-06-06 10:51 | disposition home or self-care (01) ==
LOC: HO.HHCL 10:50
PROVIDERS: Visit Provider Internal Medicine
DX: Z11.1 Encounter for screening for respiratory tuberculosis (principal)
CPT/HCPCS: 36415; 86481

== ENCOUNTER 2024-06-29 10:45 | Outpatient (REF) | payer MEDICAID, SELFPAY ==
[2024-06-29 13:30] LABS: MANUAL DIFF FLAG NO
[2024-06-29 13:40] LABS: Basophils Percent Auto 0.7 % (0-2); Eosinophils Absolute Auto 0.1 X10*3/uL (0.0-0.4); Eosinophils Percent Auto 1.9 % (0-4); Hematocrit 46.4 % (42.0-52.0); Hemoglobin 15.4 g/dl (14.0-18.0); Imm Gran Abs Auto 0.01 X10*3/uL (0.00-0.03); Imm Gran Pct Auto 0.2 % (0.0-0.4); Lymphocytes Absolute Auto 1.4 X10*3/uL (1.2-4.9); Lymphocytes Percent Auto 31.3 % (20-40); Mean Corpuscular HGB Conc 33.2 g/dl (31.0-36.0); Mean Corpuscular Hemoglobin 30.4 pg (27.0-33.0); Mean Corpuscular Volume 91.5 fL (80.0-98.0); Mean Platelet Volume 12.3 fL (9.4-12.4); Monocytes Absolute Auto 0.4 X10*3/uL (0.1-1.2); Monocytes Percent Auto 8.3 % (2-11); Neutrophils Absolute Auto 2.5 x10*3/uL (2.0-8.3); Neutrophils Percent Auto 57.6 % (45-73); Platelet Count 177 X10*3/uL (160-400); Red Blood Count 5.07 X10*6/uL (4.60-5.80); Red Cell Distribution Width 12.7 % (11.0-16.0); White Blood Count 4.3 X10*3/uL (4.8-10.8)
[2024-06-29 14:08] LABS: Alanine Aminotransferase 33 U/L (0-40); Albumin Level 4.4 g/dL (3.5-5.0); Alkaline Phosphatase 105 U/L (39-117); Anion Gap 10 (12-20); Aspartate Amino Transferase 32 U/L (5-37); Bilirubin Total 1.2 mg/dL (0.0-1.0); Blood Urea Nitrogen 17 mg/dL (9-16); Calcium 9.4 mg/dL (8.4-10.2); Carbon Dioxide 23 mmol/L (22-29); Chloride 110 mmol/L (96-108); Cholesterol 183 mg/dL (<200); Estimated Glomerular Filt Rate > 60; Glucose Random 73 mg/dL (60-115); HDL Cholesterol 41 mg/dL (>40); LDL Cholesterol Calculated 128 mg/dL (<100); Potassium 3.9 mmol/L (3.3-5.1); Sodium 139 mmol/L (135-145); Total Protein 7.5 g/dL (6.5-8.0); Triglycerides 71 mg/dL (<150)
[2024-06-29 14:11] LABS: Estimated Average Glucose 100 mg/dL; Hemoglobin A1c % 5.1 % (<6.0); Total Hemoglobin (HGBA1C) 3955.9684 umol/L
[2024-06-29 14:28] LABS: Vitamin D 25-OH Total 26.1 ng/mL (>30)
[2024-07-02 08:16] LABS: HIV AB/AG Nonreactive (Nonreactive); HIV Num 1 0.07 S/CO (0.00-0.99); ~HepC Num1 0.09 S/CO (0.00-0.79); ~Hepatitis C Antibody Nonreactive (Nonreactive)
== END 2024-06-29 10:46 | disposition home or self-care (01) ==
LOC: HO.HHCL 10:45
PROVIDERS: Visit Provider Internal Medicine
DX: Z00.00 Encounter for general adult medical examination without abnormal findings (principal)
CPT/HCPCS: 36415; 80053; 80061; 82306; 83036; 85025; 86803; 87389

== ENCOUNTER 2024-12-06 10:47 | Outpatient (REF) | payer MEDICAID, SELFPAY ==
--- OUTSIDE RECORDS SUMMARY | 2024-12-06 10:00 | XMS_ITS | Encounter Summary ---
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 Role Phone Autumn Wilson MD Primary Care Provide r Encounter Details Date Type Department Care Team (Late st Contact Info) Description 12/06/2024 10:00 AM EDT Office Visit [facility] [address] [place] [address] Autumn Wilson MD [address] [place] [address] Tinea pedis of right foot (Primary Dx); Dietary counseling; Exercise counseling; Contact dermatitis, unspecified contact dermatitis type, unspecified trigger; Bleeding per rectum; Epigastric pain; Chronic migraine without aura without status migrainosus, not intractable; Vitamin D deficiency; Elevated LFTs Social History Tobacco Use Types Packs/Day Years Used Date Smoking Tobacco: Every Day Cigarettes Passive Smoke Exposure: Current Smokeless Tobacco: Never Alcohol Use Standard Drinks/Week Comments Never 0 (1 standard drink = 0.6 oz pur e alcohol) Depression Answer Date Recorded Patient Health Questionnaire-9 Score 0 06/29/2024 Patient Health Questionnaire-9 Score 0 06/29/2024 Last PHQ-9: Questionnaire Data Not on file 0 06/29/2024 Housing Stability Answer Date Recorded What is your housing situation today? I have leonie pinon 06/21/[address] you li ve. Do you have problems with any of the following? None of the above 06/21/2024 Food Insecurity Answer Date Recorded Within the past 12 months, y ou worried that your food would run out before you got money to buy more: Never True 06/21/2024 Within the past 12 months,th e food you bought just didn't last and you didn't have enough money to get more: Never True Transportation Answer Date Recorded In the past 12 months, has l ack of transportation kept you from medical appts, meetings, work or from getting things needed for daily living? No 06/21/2024 Utilities Answer Date Recorded In the past 12 months, has t he electric, gas, oil or water company threatened to shut off services in your home? No 06/21/2024 Depression Answer Date Recorded Patient Health Questionnaire-2 Score 0 06/29/2024 Internet Access Answer Date Recorded Internet Access Q1 Yes 06/21/2024 Internet Access Q2 Not on file 06/21/2024 Sex and Gender Information Value Date Recorded Sex Assigned at Male 06/29/2022 9:40 AM EDT Legal Sex Male 9:36 AM EDT Gender Identity Male 06/29/2022 9:40 AM EDT Sexual Orientation Straight 06/29/2022 9: 40 AM EDT documented as of this encounter Last Filed Vital Signs Vital Sign Reading Time Taken Comments Blood Pressure 120/84 12/06/2024 9:59 AM EDT Pulse 78 12/06/2024 9:59 AM EDT Temperature 36.5 C (97.7 F) 12/06/2024 9:59 AM EDT Respiratory Rate 16 12/06/2024 9:59 AM EDT Oxygen Saturation 98% 12/06/2024 9:59 AM EDT Inhaled Oxygen Concentration - - Weight 72.4 kg (159 lb 9.6 oz) 12/06/2024 9:59 A M EDT Height 165.1 cm (5' 5 ) 12/06/2024 9:59 AM EDT Body Mass Index 26.56 12/06/2024 9:59 AM EDT documented in this encounter Progress Notes * Autumn Calderon MD - 12/06/2024 10:00 AM EDT SUBJECTIVE: Ori Herman is a 49 y.o. year old male who presents for Chronic Disease Management . Ori Herman, 49 years Rectal Bleeding and Gastrointestinal Symptoms - Recent hospitalization for rectal bleeding and stomach problems - Underwent endoscopy and colonoscopy; polyp detected and removed - Informed that procedure was successful and no follow-up needed for 5-10 years - Reports intermittent stomach pain, sometimes severe, with periods of stability - Describes a recent episode of acute chest/epigastric pain after eating empanadillas, with intensepain radiating to the chest, requiring rest at work - History of acid reflux symptoms, including heartburn - No current use of medication for reflux prior to this visit Headaches/Migraines - Reports recurrent headaches, sometimes severe, often in the morning - Describes pain as involving the whole head, sometimes with nausea and photophobia - Headaches sometimes triggered by cold or during/after breakfast - Uses cold water and wears a cap and sunglasses to reduce light sensitivity Foot Symptoms - Reports new onset of excessive sweating and malodor of the feet, especially in the plantar area - Noted persistent dry, peeling skin on the soles, worsening with daily use of white socks and different shoes - Attempts at self-care with creams and frequent shoe changes without improvement Hand Symptoms - Reports chronic dry, peeling skin on hands, worsened by use of latex gloves at work - Recent episode of rash spreading over the hands Urinary Symptoms - Reports recent increase in urination with dark yellow urine - Denies dysuria, denies pain with urination Vitamin and Bone Health Concerns - Not taking any vitamins or supplements for bone health or calcium - Expressed interest in starting vitamins due to concern for bone health Social History Social History Narrative Not on file Problem List[1] Chronic bilateral low back pain with right-sided sciatica Chronic migraine without aura without status migrainosus, not intractable Helicobacter pylori infection Elevated LFTs Pruritus Allergies Tobacco dependence Melasma Colon cancer screening Hair loss Encounter for preventive care Impacted cerumen of right ear Acute otitis externa of left ear Tinea pedis of right foot Dermatitis, contact Bleeding per rectum Vitamin D deficiency Family History[2] Review of Systems Constitutional: Negative. HENT: Negative. Respiratory: Negative. Cardiovascular: Negative. Gastrointestinal: Positive for abdominal distention and abdominal pain. Negative for anal bleeding,blood in stool, constipation, diarrhea, nausea, rectal pain and vomiting. Genitourinary: Negative for decreased urine volume, difficulty urinating, dysuria, enuresis, flank pain, frequency, genital sores, hematuria, penile discharge, penile pain, penile swelling, scrotal swelling, testicular pain and urgency. Skin: Positive for rash. OBJECTIVE: Vitals: 12/06/24 0959 BP: 120/84 BP Location: Left arm Patient Position: Sitting BP Cuff Size: Adult Pulse: 78 Resp: 16 Temp: 97.7 ??F (36.5 ??C) TempSrc: Temporal SpO2: 98% Weight: 159 lb 9.6 oz (72.4 kg) Height: 5' 5 (1.651 m) Physical Exam Constitutional: Appearance: Normal appearance. Cardiovascular: Rate and Rhythm: Normal rate and regular rhythm. Pulmonary: Effort: Pulmonary effort is normal. Abdominal: General: Abdomen is flat. Palpations: Abdomen is soft. Tenderness: There is no abdominal tenderness. Musculoskeletal: Right lower leg: No edema. Left lower leg: No edema. Neurological: General: No focal deficit present. Mental Status: He is alert. Mental status is at baseline. Follow Up: No follow-ups on file. Medications Ordered Prior to Encounter[3] Problem List Items Addressed This Visit Tinea pedis of right foot - Primary Relevant Medications clotrimazole (Lotrimin) 1 % cream triamcinolone (Kenalog) 0.1 % cream Dermatitis, contact Relevant Medications clotrimazole (Lotrimin) 1 % cream triamcinolone (Kenalog) 0.1 % cream Bleeding per rectum Relevant Medications cholecalciferol (Vitamin D-3) 25 MCG (1000 UT) tablet Chronic migraine without aura without status migrainosus, not intractable Relevant Medications amitriptyline (Elavil) 10 MG tablet kcabdnu-wkynfhstylziv-armkiuyr (Excedrin Migraine) 250-250-65 MG tablet Vitamin D deficiency Relevant Medications cholecalciferol (Vitamin D-3) 25 MCG (1000 UT) tablet Elevated LFTs Relevant Medications omeprazole (PriLOSEC) [address] capsule Other Relevant Orders Basic Metabolic Panel Hepatic Function Panel Other Visit Diagnoses Dietary counseling Exercise counseling Epigastric pain Relevant Medications omeprazole (PriLOSEC) [address] capsule Tinea pedis of right foot: - Tinea pedis diagnosed based on clinical findings of dry, peeling skin and malodor on the plantar aspect of the right foot. - Prescribed clotrimazole cream to be applied twice daily for four weeks to affected areas of the right foot, including between the toes. Advised to dry feet thoroughly after bathing and to use cleansocks and shoes. Contact dermatitis, unspecified contact dermatitis type, unspecified trigger: - Contact dermatitis of the hands attributed to glove use, likely due to intolerance to latex material. - Prescribed triamcinolone cream to be applied to affected areas of the hands twice daily for two weeks. Recommended use of vinyl gloves instead of latex gloves at work. Advised continued use of emollients such as petroleum jelly. Bleeding per rectum: - Prior episode of rectal bleeding evaluated by gastroenterology with colonoscopy; polyp detected and removed, no further intervention required at this time. - No follow-up required for 5-10 years per gastroenterology recommendations. Epigastric pain: - Epigastric pain with associated reflux symptoms. - Prescribed omeprazole to be taken every morning before breakfast. Advised to monitor symptoms andreport any recurrence or worsening. Chronic migraine without aura without status migrainosus, not intractable: - Chronic migraine without aura, associated with photophobia and nausea. - Prescribed amitriptyline 10 mg nightly for migraine prophylaxis. Prescribed Excedrin Migraine foracute migraine attacks. Scheduled follow-up phone call in four weeks to assess response to therapy.Advised to take amitriptyline early in the evening to minimize morning drowsiness. Instructed to answer follow-up call and report effectiveness of medications. Vitamin D deficiency: - Vitamin D deficiency confirmed. - Prescribed daily vitamin D supplementation. Elevated LFTs: - Prior episode of elevated liver function tests, previously normalized; possible transient etiology such as passed gallstone considered. - Ordered laboratory tests to reassess liver and kidney function. This note was drafted using [employer] technology. The patient/patient's guardian has been informed and has consented to the use of this technology: Yes [1] Patient Active Problem List Diagnosis Chronic bilateral low back pain with right-sided sciatica Chronic migraine without aura without status migrainosus, not intractable Helicobacter pylori infection Elevated LFTs Pruritus Allergies Tobacco dependence Melasma Colon cancer screening Hair loss Encounter for preventive care Impacted cerumen of right ear Acute otitis externa of left ear Tinea pedis of right foot Dermatitis, contact Bleeding per rectum Vitamin D deficiency [2] No family history on file. [3] Current Outpatient Medications on File Prior to Visit Medication Sig Dispense Refill acetaminophen (Tylenol) 500 MG tablet Take 2 tablets (1,000 mg) by mouth every 6 (six) hours if needed for moderate pain or fever for up to 25 doses. 30 tablet 0 aluminum-magnesium hydroxide-simethicone (Maalox) 200-200-20 MG/5ML suspension Take 30 mL by mouth before breakfast, before lunch, before evening meal, and at bedtime. 1680 mL 0 hydroquinone 4 % cream Apply topically 2 times daily. 28 g 1 hydrOXYzine pamoate (Vistaril) 25 MG capsule Take 1 capsule (25 mg) by mouth every 6 (six) hours ifneeded for itching for up to 10 days. 30 capsule 0 ibuprofen 400 MG tablet Take 1 tablet (400 mg) by mouth every 8 (eight) hours if needed for moderate pain or fever for up to 30 doses. 30 tablet 0 lidocaine (Lidoderm) 5 % patch Apply 1 patch topically in the morning. Remove & discard patch within 12 hours or as directed by MD. 30 patch 1 minoxidil (Loniten) 2.5 MG tablet Take 1 tablet (2.5 mg) by mouth Once per day. 30 tablet 11 minoxidil (Rogaine) 2 % external solution Apply topically 2 times daily. 60 mL 0 nicotine (Nicoderm CQ) 14 MG/24HR patch Place 1 patch on the skin 1 (one) time each day at the sametime. 42 patch 0 nicotine (Nicoderm CQ) 7 MG/24HR patch Place 1 patch on the skin 1 (one) time each day at the same time. 14 patch 0 nicotine polacrilex (Commit) 2 MG lozenge DISSOLVE 1 LOZENGE EVERY 2 HOURS IN THE MOUTH IF NEEDED FOR SMOKING CESSATION 100 lozenge 0 nicotine polacrilex (Nicotine Mini) 2 MG lozenge Dissolve 1 lozenge (2 mg) in the mouth if needed for smoking cessation. 100 lozenge 0 [DISCONTINUED] amitriptyline (Elavil) 10 MG tablet Take 1 tablet (10 mg) by mouth at bedtime. 30 tablet 1 [DISCONTINUED] omeprazole (PriLOSEC) [address] capsule Take 1 capsule (20 mg) by mouth before breakfast. Do not crush or chew. 30 capsule 11 No current facility-administered medications on file prior to visit. documented in this encounter Plan of Treatment Upcoming Encounters Date Type Department Care Team (Late st Contact Info) Description 01/30/2025 10:30 AM EST Telemedicine [facility] [address] [place] [address] Autumn Wilson MD [address] [place] [address] Scheduled Orders Name Type Priority Associated Diagnoses Orde r Schedule Basic Metabolic Panel Lab Routine Elevated LFTs Expected: 12/06/2024 (Approximate), Expires: 12/06/2025 Hepatic Function Panel Lab Routine Elevated LFTs Expected: 12/06/2024 (Approximate), Expires: 12/06/2025 documented as of this encounter Visit Diagnoses Diagnosis Tinea pedis of right foot- Primary Dietary counseling Dietary surveillance and counseling Exercise counseling Contact dermatitis, unspecified contact dermatitis type, unspecified trigger Bleeding per rectum Hemorrhage of rectum and anus Epigastric pain Abdominal pain, epigastric Chronic migraine without aura without status migrainosus, not intractable Vitamin D deficiency Elevated LFTs Other abnormal blood chemistry documented in this encounter Additional Health Concerns Assessment Noted Time PHQ-9 Depression Total Score: 0 06/30/19 25 9:34 AM EDT documented as of this encounter 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
--- OUTSIDE RECORDS SUMMARY | 2024-12-06 13:19 | XMS_ITS | Clinical Summary ---
Author Organization [address] [facility] Address [address] [place] [address] Phone Care Team Providers Care Piano Machine Operator Name Role Phone Autumn Wilson MD Primary Care Provide r Allergies No known active allergies Medications acetaminophen (TYLENOL) 500 mg tablet Take 2 tablets (1,000 mg total) by mouth every 6 (six) hours if needed for mild pain. Active famotidine (Pepcid) 20 mg tabletIndicatio ns:Upper abdominal pain Take 1 tablet (20 mg total) by mouth 1 (one) time each day. 30 each 5 5 04/15/19 26 Active psyllium (Metamucil, with sugar,) 3.4 gram packetIndicatio ns:Rectal bleeding Take 1 packet by mouth 1 (one) time each day. Mix and drink with at least 8 ounces of water or juice. 30 packet 11 5 10/17/19 26 Active hydrocortisone (ANUSOL-HC) 2.5 % rectal creamIndication s:Rectal bleeding Insert into the rectum 2 (two) times a day if needed for hemorrhoids (for rectal discomfort) for up to 14 days. 30 g 5 Active Active Problems Problem Noted Date Diagnosed Date Acute otitis externa of left ear 06/29/2024 Hair loss 06/29/2024 Impacted cerumen of right ear 06/29/2024 Melasma 06/29/2024 Tobacco dependence 07/01/2023 Allergies 08/30/2022 Elevated LFTs 08/30/2022 Helicobacter pylori infection 08/30/2022 Pruritus 08/30/2022 Chronic bilateral low back pain with right-sided sciatica 06/29/2022 Chronic migraine without aur a without status migrainosus, not intractable 06/29/2022 Encounters Date Type Department Care Team Description 10/24/2024 Telephone Gastroenterology - [address] [place] [phone] Maria R Cruz MA 10/22/2024 12:31 PM EDT Anesthesia Event [facility] Endoscopy [address] [place] [phone] Lake Leija MD 10/22/2024 11:44 AM EDT - 10/22/2024 11:59 PM EDT Hospital Encounter [facility] Endoscopy [address] [place] [phone] Vimal Cr MD Decandio, Laura, CRNA Spencer, Mark A, MD Upper abdominal pain; Rectal bleeding; Constipation; GERD (gastroesophageal reflux disease) Discharge Disposition: Home or Self Care 10/16/2024 9:40 AM EDT Consult Gastroenterology - [address] [place] [phone] Estela Lantigua PA Upper abdominal pain (Primary Dx); Rectal bleeding; Colon cancer screening 10/16/2024 Telephone Gastroenterology - [address] [place] [phone] Valerie Martinez MA 10/01/2024 2:36 PM EDT - 10/01/2024 11:59 PM EDT Hospital Encounter [facility] Endoscopy [address] [place] [phone] Amadou Ervin MD Slanda, Summer, CRNA Freeman, Katharine O, MD Colon cancer screening Discharge Disposition: Home or Self Care 10/01/2024 Telephone Gastroenterology - [place] [address] [facility] [address] [place] [phone] Amadou Ervin MD from Last 3 Months Medical History Medical History Date Comments GERD (gastroesophageal reflux disease) Headache Family History Medical History Relation Name Comments Colon cancer Neg Hx Social History Tobacco Use Types Packs/Day Years Used Date Smoking Tobacco: Some Days Cigarettes Smokeless Tobacco: Current Tobacco Cessation:Ready to Q uit: Not Asked; Counseling Given: Not Answered Alcohol Use Standard Drinks/Week Comments Not Currently 0 (1 standard drink = 0.6 oz pur e alcohol) Interpersonal Safety Answer Date Record ed Physical Abuse Unrecognized value 10/22/2024 Verbal Abuse Unrecognized value 10/22/2024 Sex and Gender Information Value Date Recorded Sex Assigned at Male 09/13/2024 10:15 AM EDT Legal Sex Male 3:42 PM EDT Gender Identity Male 09/13/2024 10:15 AM EDT Sexual Orientation Straight 10/01/2024 2: 31 PM EDT Obstetrics History Last Filed Vital Signs Vital Sign Reading Time Taken Comments Blood Pressure 113/76 10/22/2024 1:18 PM EDT Pulse 65 10/22/2024 1:18 PM EDT Temperature 36.1 C (97 F) 10/22/2024 12:58 PM EDT Respiratory Rate 14 10/22/2024 1:18 PM EDT Oxygen Saturation 99% 10/22/2024 1:18 PM EDT Inhaled Oxygen Concentration - - Weight 69.9 kg (154 lb) 10/16/2024 9:42 AM EDT Height 160 cm (5' 3 ) 10/16/2024 9:42 AM EDT Body Mass Index 27.28 10/16/2024 9:42 AM EDT Plan of Treatment Health Maintenance Due Date Last Done Comments DTaP,Tdap,and Td Vaccines (1 - Tdap) 06/12/1995 Hepatitis B Vaccines (1 of 3 - 19+ 3-dose series) 06/12/1995 Depression Screening 02/08/2024 Social Influencers of Health Screening 06/30/2024 COVID-19 Vaccine (1 - 2023-2 5 season) 2024 Influenza Vaccine (#1) 2024 11/04/2022 Cholesterol Screening (Lipid Panel) 06/29/2029 06/29/2024 Colorectal Cancer Screening: Colonoscopy 10/22/2029 10/22/2024 RSV Immunization Adult Patie nts (1 - 1-dose 75+ series) 06/12/2051 HIV Screening Completed 06/29/2024 Hepatitis C Screening Completed 06/29/2024 Pneumococcal Vaccine: Pediat rics (0 to 5 Years) and At-Risk Patients (6 to 49 Years) Completed 06/29/2024 HIB Vaccines Aged Out No longer eligi [...] on patient's age to complete this topic MMR Vaccines Aged Out No longer eligi ble based on patient's age to complete this topic Meningococcal ACWY Vaccine Aged Out N o longer eligible based on patient's age to complete this topic Meningococcal B Vaccine Aged Out No l onger eligible based on patient's age to complete this topic RSV Immunization Patients Un dede 20 months Aged Out No longer eligible b ased on patient's age to complete this topic Varicella Vaccines Aged Out No longer eligible based on patient's age to complete this topic Procedures Procedure Name Priority Date/Time Associated Diagnosis Comments COLONOSCOPY Routine 10/22/2024 12:57 PM EDT Upper abdominal pain Rectal bleeding Constipation GERD (gastroesophageal reflux disease) EGD Routine 10/22/2024 12:57 PM EDT Upper abdominal pain Rectal bleeding Constipation GERD (gastroesophageal reflux disease) TISSUE EXAM Routine 10/22/2024 12:40 PM EDT Upper abdominal pain Rectal bleeding Constipation GERD (gastroesophageal reflux disease) from Last 3 Months Results * COLONOSCOPY Anesthesia - MAC; [facility] ENDOSCOPY (10/22/2024 12:57 PM EDT) Anatomical Region Laterality Modality Other 10/22/2024 12:2 9 PM EDT Impressions 10/22/2024 12:50 PM EDT - One 9 mm polyp in the transverse colon, removed with a cold snare. Resected and retrieved. - One 5 mm polyp in the sigmoid colon, removed with a cold snare. Resected and retrieved. - The examination was otherwise normal on direct and retroflexion views. Recommendation: - Await pathology results. - Repeat colonoscopy in 5 years for surveillance. Narrative 10/22/2024 12:50 PM EDT [facility] GI Patient Name: Ori Severino Procedure Date: 10/22/2024 12:29 PM Date of : 1975 Age: 49 Room: ROOM 14 Gender: Male Note Status: Finalized Attending MD: Vimal Cr MD, Procedure Date No Time: 10/22/2024 Procedure: Colonoscopy Indications: Screening for colorectal malignant neoplasm Providers: Vimal Cr MD Referring MD: Vimal Cr MD Medicines: Propofol per Anesthesia Complications: No immediate complications. Estimated Blood Loss: Estimated blood loss was minimal. Procedure: Pre-Anesthesia Assessment: - ASA Grade Assessment: II - A patient with mild systemic disease. After I obtained informed consent, the scope was passed under direct vision. Throughout the procedure, the patient's blood pressure, pulse, and oxygen saturations were monitored continuously.The Colonoscope was introduced through the anus and advanced to the cecum, identified by appendiceal orifice and ileocecal valve. The colonoscopy was performed without difficulty. The patient tolerated the procedure well. The quality of the bowel preparation was good. Findings: The perianal and digital rectal examinations were normal. A 9 mm polyp was found in the transverse colon. The polyp was sessile. The polyp was removed with a cold snare. Resection and retrieval were complete. A 5 mm polyp was found in the sigmoid colon. The polyp was sessile. The polyp was removed with a cold snare. Resection and retrieval were complete. The exam was otherwise without abnormality on direct and retroflexion views. Procedure Code(s): --- Professional --- 61925, Colonoscopy, flexible; with removal of tumor(s), polyp(s), or other lesion(s) by snare technique Diagnosis Code(s): --- Professional --- Z12.11, Encounter for screening for malignant neoplasm of colon D12.3, Benign neoplasm of transverse colon (hepatic flexure or splenic flexure) D12.5, Benign neoplasm of sigmoid colon CPT copyright 2020 [employer]. All rights reserved. The codes documented in this report are preliminary and upon braille coder review may be revised to meet current compliance requirements. Vimal Cr MD 10/22/2024 12:50:54 PM This report has been signed electronically.Vimal Cr MD Number of Addenda: 0 Note Initiated On: 10/22/2024 12:29 PM Scope In: Scope Out: Endoscopy Department at [facility] - [address] [place] [phone] Procedure Note Vimal Cr MD - 10/22/2024 [facility] GI Patient Name: Ori Severino Procedure Date: 10/22/2024 12:29 PM Date of : 1975 Age: 49 Room: ROOM 14 Gender: Male Note Status: Finalized Attending MD: Vimal Cr MD, Procedure Date No Time: 10/22/2024 Procedure: Colonoscopy Indications: Screening for colorectal malignant neoplasm Providers: Vimal Cr MD Referring MD: Vimal Cr MD Medicines: Propofol per Anesthesia Complications: No immediate complications. Estimated Blood Loss: Estimated blood loss was minimal. Procedure: Pre-Anesthesia Assessment: - ASA Grade Assessment: II - A patient with mild systemic disease. After I obtained informed consent, the scope was passed under direct vision. Throughout theprocedure, the patient's blood pressure, pulse, and oxygen saturations were monitored continuously.The Colonoscope was introduced through the anus and advanced to the cecum, identified by appendiceal orifice and ileocecal valve. The colonoscopy was performed without difficulty. The patient tolerated the procedure well. The quality of the bowel preparation was good. Findings: The perianal and digital rectal examinations were normal. A 9 mm polyp was found in the transverse colon. The polyp was sessile. The polyp was removed with acold snare. Resection and retrieval were complete. A 5 mm polyp was found in the sigmoid colon. Thepolyp was sessile. The polyp was removed with a coldsnare. Resection and retrieval were complete. The exam was otherwise without abnormality ondirect and retroflexion views. Procedure Code(s): --- Professional --- 98794, Colonoscopy, flexible; with removal of tumor(s), polyp(s), or other lesion(s) by snare technique Diagnosis Code(s): --- Professional --- Z12.11, Encounter for screening for malignantneoplasm of colon D12.3, Benign neoplasm of transverse colon (hepatic flexure or splenic flexure) D12.5, Benign neoplasm of sigmoid colon CPT copyright 2020 [employer]. All rights reserved. The codes documented in this report are preliminary and upon braille coder reviewmay be revised to meet current compliance requirements. Vimal Cr MD 10/22/2024 12:50:54 PM This report has been signed electronically.Vimal Cr MD Number of Addenda: 0 Note Initiated On: 10/22/2024 12:29 PM Scope In: Scope Out: Endoscopy Department at [facility] - [address] [place] [phone] IMPRESSION: - One 9 mm polyp in the transverse colon, removed with a cold snare. Resected and retrieved. - One 5 mm polyp in the sigmoid colon, removed witha cold snare. Resected and retrieved. - The examination was otherwise normal on directand retroflexion views. Recommendation: - Await pathology results. - Repeat colonoscopy in 5 years for surveillance. Vimal Cr MD GI~PROCEDURE ORDERABLES Fin al Result * EGD Anesthesia - MAC; [facility] ENDOSCOPY (10/22/2024 12:57 PM EDT) Anatomical Region Laterality Modality Other 10/22/2024 12:5 1 PM EDT Impressions 10/22/2024 12:57 PM EDT - Normal lower third of esophagus. Biopsied. - Normal esophagus. - Normal stomach. - Normal examined duodenum. Recommendation: - Await pathology results. - Continue present medications. Narrative 10/22/2024 12:57 PM EDT [facility] GI Patient Name: Ori Severino Procedure Date: 10/22/2024 12:51 PM Date of : 1975 Age: 49 Room: ROOM 14 Gender: Male Note Status: Finalized Attending MD: Vimal Cr MD, Procedure Date No Time: 10/22/2024 Procedure: Upper GI endoscopy Indications: Epigastric abdominal pain, Heartburn, Suspected gastro-esophageal reflux disease Providers: Vimal Cr MD Referring MD: Vmial Cr MD Medicines: Propofol per Anesthesia Complications: No immediate complications. Estimated Blood Loss: Estimated blood loss was minimal. Procedure: Pre-Anesthesia Assessment: - ASA Grade Assessment: II - A patient with mild systemic disease. - ASA Grade Assessment: II - A patient with mild systemic disease. After obtaining informed consent, the endoscope was passed under direct vision. Throughout the procedure, the patient's blood pressure, pulse, and oxygen saturations were monitored continuously.The Olympus Gastroscope was introduced through the mouth, and advanced to the second part of duodenum. The upper GI endoscopy was accomplished without difficulty. The patient tolerated the procedure well. Findings: The lower third of the esophagus was normal. Biopsies were taken with a cold forceps for histology. The examined esophagus was normal. The stomach was normal. The examined duodenum was normal. Procedure Code(s): --- Professional --- 09731, Esophagogastroduodenoscopy, flexible, transoral; with biopsy, single or multiple Diagnosis Code(s): --- Professional --- R10.13, Epigastric pain R12, Heartburn CPT copyright 2020 [employer]. All rights reserved. The codes documented in this report are preliminary and upon braille coder review may be revised to meet current compliance requirements. Vimal Cr MD 10/22/2024 12:57:04 PM This report has been signed electronically.Vimal Cr MD Number of Addenda: 0 Note Initiated On: 10/22/2024 12:51 PM Scope In: Scope Out: Endoscopy Department at [facility] - [address] [place] [phone] Procedure Note Vimal Cr MD - 10/22/2024 [facility] GI Patient Name: Ori Severino Procedure Date: 10/22/2024 12:51 PM Date of : 1975 Age: 49 Room: ROOM 14 Gender: Male Note Status: Finalized Attending MD: Vimal Cr MD, Procedure Date No Time: 10/22/2024 Procedure: Upper GI endoscopy Indications: Epigastric abdominal pain, Heartburn, Suspected gastro-esophageal reflux disease Providers: Vimal Cr MD Referring MD: Vimal Cr MD Medicines: Propofol per Anesthesia Complications: No immediate complications. Estimated Blood Loss: Estimated blood loss was minimal. Procedure: Pre-Anesthesia Assessment: - ASA Grade Assessment: II - A patient with mild systemic disease. - ASA Grade Assessment: II - A patient with mild systemic disease. After obtaining informed consent, the endoscope was passed under direct vision. Throughout theprocedure, the patient's blood pressure, pulse, and oxygen saturations were monitored continuously.The Olympus Gastroscope was introduced through the mouth, and advanced to the second part of duodenum. The upperGI endoscopy was accomplished without difficulty. The patient tolerated the procedure well. Findings: The lower third of the esophagus was normal.Biopsies were taken with a cold forceps for histology. The examined esophagus was normal. The stomach was normal. The examined duodenum was normal. Procedure Code(s): --- Professional --- 23835, Esophagogastroduodenoscopy, flexible, transoral; with biopsy, single or multiple Diagnosis Code(s): --- Professional --- R10.13, Epigastric pain R12, Heartburn CPT copyright 2020 [employer]. All rights reserved. The codes documented in this report are preliminary and upon braille coder reviewmay be revised to meet current compliance requirements. Vimal Cr MD 10/22/2024 12:57:04 PM This report has been signed electronically.Vimal Cr MD Number of Addenda: 0 Note Initiated On: 10/22/2024 12:51 PM Scope In: Scope Out: Endoscopy Department at [facility] - [address] [place] [phone] IMPRESSION: - Normal lower third of esophagus. Biopsied. - Normal esophagus. - Normal stomach. - Normal examined duodenum. Recommendation: - Await pathology results. - Continue present medications. Vimal Cr MD GI~PROCEDURE ORDERABLES Fin al Result * Tissue exam (10/22/2024 12:40 PM EDT) Final Diagnosis A. Polyp, transverse colon, polypectomy: - Tubular adenoma. B. Polyp, sigmoid colon, polypectomy: - Colonic mucosa with features suggestive of a diminutive hyperplastic polyp. (See note.) Note: Multiple additional levels are examined. C. Lower esophagus, biopsy: - Esophageal squamous mucosa with focal increase in intraepithelial lymphocytes associated with spongiosis (non-specific). - No intraepithelial eosinophils and no glandular mucosa identified. 10/24/2024 12:[address] [facility] HOSPITAL LAB Comment Set Up Mechanic Crown Assembly Machine slide(s) from this case have been presented at Anatomic Pathology Intradepartmental Review Conference on 10/23/24. 10/24/2024 12:30 PM EDT [facility] Gross Description A. Large Intestine, Transverse Colon, polyp: Labeled trans colon polyp . Received in formalin is a 0.4 cm polypoid hernandez mucosal tissue fragment which is wrapped in paper and submitted in toto in one cassette, one piece, multiple levels on one slide. B. Large Intestine, Sigmoid Colon, polyp: Labeled Sig colon polyp . Received in formalin is a 0.3 cm irregular hernandez mucosal tissue fragment which is wrapped in paper and submitted in toto in one cassette, one piece, multiple levels on one slide. C. Esophagus, lower biopsies: Labeled esophagus lower . Received in formalin are two irregular pink-white mucosal tissue fragments, each measuring approximately 0.2 cm in greatest dimension, which are wrapped in paper and submitted in toto in one cassette, two pieces, multiple levels on one side. PERFECTO 10/24/2024 12:30 PM EDT [facility] Disclaimer Unless otherwise specified, all tissue is 10% NB formalin fixed and paraffin embedded. 10/24/2024 12:30 PM EDT [facility] Tissue Transverse colon structure / Unknown 10/22/2024 12:40 PM EDT 10/22/2024 2:57 PM EDT Tissue specimen (specimen) Sigmoid colon structure / Unknown 10/22/2024 12:47 PM EDT 10/22/2024 2:57 PM EDT Tissue specimen (specimen) Esophageal structure / Unknown 10/22/2024 12:54 PM EDT 10/22/2024 2:57 PM EDT us Vimal Cr MD LAB PATHOLOGY ORDERABLES Fi nal Result [facility] [address] [place] [address], from Last 3 Months Insurance MEDICAID - [place] Care Teams Piano Machine Operator Relationship Specialty Start Date End Date Autumn Wilson MD [address] [phone] PCP - General Internal Medicine 06/29/24
--- OUTSIDE RECORDS SUMMARY | 2024-12-06 13:19 | XMS_ITS | Encounter Summary ---
Author Organization [employer] Address [address] [place] [address] Care Team Providers Care Fork Lift Truck Operator Name Role Phone Autumn Wilson MD Primary Care Provide r Encounter Details Date Type Department Care Team (Latest Contact Info) Description 12/06/2024 Travel Social History Tobacco Use Types Packs/Day Years [...] is your housing situation today? I have leonieestrella pinon 06/21/[address] you [...] Info) Description 01/30/2025 10:30 AM EST Telemedicine [facility] [address] [place] [phone] Autumn Wilson MD [address] [place] [phone] documented as of this encounter Visit Diagnoses Not on filedocumented in this encounter Additional Health Concerns Assessment Noted Time PHQ-9 Depression Total Score: 0 06/30/19 25 9:34 AM EDT documented as of this encounter Care Teams Fork Lift Truck Operator Relationship Specialty Start Date End Date Autumn Wilson MD [address] [place] [phone] PCP - General Internal Medicine 06/29/22 documented as of this encounter
--- OUTSIDE RECORDS SUMMARY | 2024-12-06 13:19 | XMS_ITS | Encounter Summary ---
Author Organization [employer] Address [address] [facility] [address] [place] [address] Care Team Providers Care Cafeteria Or Lunchroom Checker Name Role Phone Autumn Wilson MD Primary Care Provide r Encounter Details Date Type Department Care Team (Late st Contact Info) Description 10/23/2024 Orders Only [facility] [address] [place] [address] Provider, MD Juan Carlos Social History Tobacco Use Types Packs/Day Years [...] Info) Description 01/30/2025 10:30 AM EST Telemedicine [facility] [address] [place] [phone] Autumn Wilson MD [address] [place] [phone] documented as of this encounter Procedures Procedure Name Priority Date/Time Associated Diagnosis Comments COLONOSCOPY Routine 10/22/2024 8:48 AM EDT documented in this encounter Results * Colonoscopy (10/22/2024 8:48 AM EDT) Anatomical Region Laterality Modality Endoscopy Historical Provider ENDOSCOPY PROCEDURE ORDER JOSE Final Result documented in this encounter Visit Diagnoses Not on filedocumented in this encounter Additional Health Concerns Assessment Noted Time PHQ-9 Depression Total Score: 0 06/30/19 25 9:34 AM EDT documented as of this encounter Care Teams Cafeteria Or Lunchroom Checker Relationship Specialty Start Date End Date Autumn Wilson MD [address] [place] [phone] PCP - General Internal Medicine 06/29/22 documented as of this encounter
--- OUTSIDE RECORDS SUMMARY | 2024-12-06 13:19 | XMS_ITS | Encounter Summary ---
Author Organization [employer] Address [address] [place] [address] Care Team Providers Care Carbon Sequestration Plant Manager Name Role Phone Autumn Wilson MD Primary Care Provide r Reason for Visit * Reason Onset Date Comments chart prep 12/05/2024 Encounter Details Date Type Department Care Team ([facility] st Contact Info) Description 12/05/2024 Telephone [facility] [address] [place], [place] [phone] Autumn Wilson MD [address] [place], [place] [phone] chart prep Social History Tobacco Use Types Packs/Day Years [...] AM EDT documented as of this encounter Miscellaneous Notes * Telephone Encounter - Ricardo Rincon [place] - 12/05/2024 7:24 PM EDT Chart Prep Labs: done Images: not applicable Referrals: not applicable Vaccines due: Flu Screenings: not applicable Overdue care gaps: Not applicable documented in this encounter Plan of Treatment Upcoming Encounters Date Type Department Care Team (Late st Contact Info) Description 01/30/2025 10:30 AM EST Telemedicine [facility] [address] [place] [address] Autumn Wilson MD [address] [place] [phone] documented as of this encounter Visit Diagnoses Not on filedocumented in this encounter Additional Health Concerns Assessment Noted Time PHQ-9 Depression Total Score: 0 06/30/19 9:34 AM EDT documented as of this encounter Care Teams Carbon Sequestration Plant Manager Relationship Specialty Start Date End Date Autumn Wilson MD [address] [place] [phone] PCP - General Internal Medicine 06/29/22 documented as of this encounter
--- OUTSIDE RECORDS SUMMARY | 2024-12-06 13:19 | XMS_ITS | Clinical Summary ---
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 1680 mL 06/30/19 23 Active hydrOXYzine pamoate (Vistaril) 25 MG capsuleIndicati ons:Pruritus Take 1 capsule (25 mg) by mouth every 6 (six) hours if needed for itching for up to 10 days. 30 capsule 08/31/19 23 Active lidocaine (Lidoderm) 5 % patchIndication s:Chronic bilateral low back pain with right-sided sciatica Apply 1 patch topically in the morning. Remove & discard patch within 12 hours or as directed by MD. 30 patch 1 11/05/19 23 Active nicotine (Nicoderm CQ) 14 MG/24HR patch Place 1 patch on the skin 1 (one) time each day at the same time. 42 patch 07/01/19 24 Active nicotine (Nicoderm CQ) 7 MG/24HR patch Place 1 patch on the skin 1 (one) time each day at the same time. 14 patch 07/01/19 24 Active acetaminophen (Tylenol) 500 MG tablet Take 2 tablets (1,000 mg) by mouth every 6 (six) hours if needed for moderate pain or fever for up to 25 doses. 30 tablet 07/01/19 24 Active ibuprofen 400 MG tablet Take 1 tablet (400 mg) by mouth every 8 (eight) hours if needed for moderate pain or fever for up to 30 doses. 30 tablet 07/01/19 24 Active nicotine polacrilex (Commit) 2 MG lozenge DISSOLVE 1 LOZENGE EVERY 2 HOURS IN THE MOUTH IF NEEDED FOR SMOKING CESSATION 100 lozenge 07/01/19 24 Active minoxidil (Rogaine) 2 % external solutionIndicat ions:Hair loss Apply topically 2 times daily. 60 mL 06/30/19 25 Active nicotine polacrilex (Nicotine Mini) 2 MG lozengeIndicati ons:Tobacco dependence Dissolve 1 lozenge (2 mg) in the mouth if needed for smoking cessation. 100 lozenge 06/30/19 25 Active hydroquinone 4 % creamIndication s:Melasma Apply topically 2 times daily. 28 g 1 10/16/19 25 026 Active minoxidil (Loniten) 2.5 MG tabletIndicatio ns:Androgenetic alopecia Take 1 tablet (2.5 mg) by mouth Once per day. 30 tablet 11 10/16/19 25 026 Active clotrimazole (Lotrimin) 1 % creamIndication s:Tinea pedis of right foot Apply topically 2 times daily for 28 days. 30 g 2 12/07/19 25 025 Active triamcinolone (Kenalog) 0.1 % creamIndication s:Contact dermatitis, unspecified contact dermatitis type, unspecified trigger Apply topically if needed in the morning and at bedtime (pain and swelling). 30 g 2 12/07/19 25 Active amitriptyline (Elavil) 10 MG tabletIndicatio ns:Chronic migraine without aura without status migrainosus, not intractable Take 1 tablet (10 mg) by mouth at bedtime. 30 tablet 1 12/07/19 25 025 Active aspirin-acetami nophen-caffeine (Excedrin Migraine) 250-250-65 MG tabletIndicatio ns:Chronic migraine without aura without status migrainosus, not intractable Take 1 tablet by mouth every 12 (twelve) hours if needed for headaches. 30 tablet 1 12/07/19 25 025 Active cholecalciferol (Vitamin D-3) 25 MCG (1000 UT) tabletIndicatio ns:Vitamin D deficiency Take 1 tablet (25 mcg) by mouth Once per day. 60 tablet 1 12/07/19 25 Active omeprazole (PriLOSEC) [address] capsuleIndicati ons:Epigastric pain Take 1 capsule (20 mg) by mouth before breakfast. Do not crush or chew. 30 capsule 3 12/07/19 25 026 Active amitriptyline (Elavil) 10 MG tabletIndicatio ns:Chronic migraine without aura without status migrainosus, not intractable Take 1 tablet (10 mg) by mouth at bedtime. 30 tablet 1 05/27/19 24 025 Discontinued(Re order (will not trigger notification to Pharmacy)) omeprazole (PriLOSEC) [address] capsuleIndicati ons:Epigastric pain Take 1 capsule (20 mg) by mouth before breakfast. Do not crush or chew. 30 capsule 11 05/27/19 24 025 Discontinued(Re order (will not trigger notification to Pharmacy)) omeprazole (PriLOSEC) [address] capsuleIndicati ons:Epigastric pain Take 1 capsule (20 mg) by mouth before breakfast. Do not crush or chew. 30 capsule 11 12/07/19 25 025 Discontinued(Re order (will not trigger notification to Pharmacy)) Active Problems Problem Noted Date Diagnosed Date Tinea pedis of right foot 12/06/2024 Dermatitis, contact 12/06/2024 Bleeding per rectum 12/06/2024 Vitamin D deficiency 12/06/2024 Melasma 06/29/2024 Colon cancer screening 06/29/2024 Hair loss 06/29/2024 Encounter for preventive care 06/29/2024 Assessment & Plan (06/29/2024 1:39 PM EDT): See HPI Impacted cerumen of right ear 06/29/2024 Assessment & Plan (06/29/2024 1:38 PM EDT): Debrox eardrops prescribed Acute otitis externa of left ear 06/29/2024 Assessment & Plan (06/29/2024 1:38 PM EDT): Medication already prescribed I advised to pick it up and use it as prescribed Tobacco dependence 07/01/2023 Assessment & Plan (06/29/2024 1:39 PM EDT): Extensive counseling done I will prescribe for him nicotine gum and refer him to pharmacy CDTM Helicobacter pylori infection 08/30/2022 Assessment & Plan [...] Assessment & Plan (08/30/2022 11:57 AM EDT): Dixon of hydroxyzine Allergies 08/30/2022 Chronic bilateral low back pain with right-sided sciatica 06/29/2022 Assessment & Plan (05/20/2023 4:19 PM EDT): PT referral done again I advise to potato picker his medications Assessment & Plan (04/19/2023 12:20 PM EDT): Apply heat on affected area Acetaminophen and flexeril prescriptions renewed, again I explain flexeril can cause somnolence and not to use it if he needs to drive or do activities that requires his attention PT referral printed and gave to patient Assessment & Plan (11/04/2022 1:01 PM EDT): 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/22 information to be provided Chronic migraine without aur a without status migrainosus, not intractable 06/29/2022 Assessment & Plan (05/20/2023 4:19 PM EDT): I advise to avoid migraine triggers like red wine, chocolate, cheese, strong perfumes I advise to potato picker his medication Assessment & Plan (04/19/2023 12:20 PM EDT): I advise to avoid migraine triggers like red wine, chocolate, cheese, strong perfumes I will start I'm on amitryptiline 10mg at bed time RTC 4 weeks televisit Resolved Problems Problem Noted Date Diagnosed Date Resolved Date Left ear pain 06/29/2024 06/29/2024 Epigastric pain 06/29/2022 06/29/2024 Assessment & Plan (04/19/2023 12:18 PM EDT): I advise patient to avoid NSAIDs, spicy and acid food, I advise to eat at the same time every day, I advise to elevate the head of the bed and take medications as prescribe Encounters Date Type Department Care Team Description 12/06/2024 10:00 AM EDT Office Visit [facility] [address] [place] [phone] Autumn Wilson MD Tinea pedis of right foot (Primary Dx); Dietary counseling; Exercise counseling; Contact dermatitis, unspecified contact dermatitis type, unspecified trigger; Bleeding per rectum; Epigastric pain; Chronic migraine without aura without status migrainosus, not intractable; Vitamin D deficiency; Elevated LFTs 12/06/2024 Travel 12/05/2024 Telephone [facility] [address] [place] [phone] Autumn Wilson MD chart prep 11/29/2024 Patient Outreach [facility] [address] [place] [phone] Autumn Wilson MD Pre-visit Planning ([facility] unable to reach ) 10/26/2024 Patient Outreach [facility] [address] [place] [phone] Autumn Wilson MD Transition Of Care (Tcm) (HDF scheduled and SDOH screening completed on 06/21/24) 10/23/2024 Orders Only [facility] [address] [place] [phone] Juan Carlos White MD 10/18/2024 Telephone [facility] [address] [place], [place] [phone] Autumn Wilson MD NOV RECALL 10/15/2024 4:00 PM EDT Office Visit [facility] [address] [place], [place] [phone] Guzman Falcon MD Melasma (Primary Dx); Androgenetic alopecia 10/15/2024 Travel 10/12/2024 Telephone [facility] [address] [place], [place] [phone] Autumn Wilson MD chart prep 10/09/2024 Travel 10/05/2024 Patient Outreach [facility] [address] [place] [phone] Autumn Wilson MD Transition Of Care (Tcm) (HDF unscheduled) 10/03/2024 Telephone [facility] [address] [place] [phone] Autumn Wilson MD from Last 3 Months Immunizations Immunization Administration Dates Next Due Influenza injectable quadrivalent preservative f ree 11/04/2022 Pneumococcal Conjugate PCV 20 06/29/2024 Social History Tobacco Use Types Packs/Day Years Used Date Smoking Tobacco: Every Day Cigarettes Passive Smoke Exposure: Current Smokeless Tobacco: Never Tobacco Cessation:Ready to Q uit: Not Asked; Counseling Given: Not Answered Alcohol Use Standard Drinks/Week Comments Never 0 (1 standard drink = 0.6 oz pur e alcohol) Depression Answer Date Recorded Patient Health Questionnaire-9 Score 0 06/29/2024 Patient Health Questionnaire-9 Score 0 06/29/2024 Last PHQ-9: Questionnaire Data Not on file 0 06/29/2024 Housing Stability Answer Date Recorded What is your housing situation today? I have leonie sing 06/21/[address] you li [...] Mass Index 26.56 12/06/2024 9:59 AM EDT Plan of Treatment Upcoming Encounters Date Type Department Care Team (Late st Contact Info) Description 01/30/2025 10:30 AM EST Telemedicine [facility] [address] [place] [phone] Autumn Wilson MD [address] [place] [address] Health Maintenance Due Date Last Done Comments CT Colonography 1976 FIT DNA/Cologuard 1976 FIT 1976 FOBT 1976 Sigmoidoscopy 1976 Family Planning (PISQ) 06/12/1991 DTaP/Tdap/Td Vaccines (1 - Tdap) 06/12/1995 Hepatitis B Vaccines (1 of 3 - 19+ 3-dose series) 06/12/1995 COVID-19 Vaccine ( - 2023-2 5 season) 2024 Influenza Vaccine (#1) 2024 11/04/2022 SDOH Screening 06/21/2025 06/21/2024 Alcohol/Substance Use Screening 06/29/2025 06/29/2024 Depression Screening 06/29/2025 06/29/2024, 06/29/2024 Disability Screening 10/09/2025 10/09/2024 Tobacco Screening 12/06/2025 12/06/2024 Zoster Vaccines (1 of 2) 2026 Lipid Panel 06/29/2029 06/29/2024, 06/29/2022 Colonoscopy 10/22/2034 10/22/2024 Colorectal Cancer Screening 10/22/2034 RSV Patients and Patients Aged 60 years or older (1 - 1-dose 75+ series) 06/12/2051 HIV Screening Completed 06/29/2024 Hepatitis C Screening Completed 06/29/2024 , 08/18/2022, 08/05/2022 Pneumococcal Vaccine: Pediatrics (0 to 5 Years) and At-Risk Patients (6 to 49) Years Completed 06/29/2024 HIB Vaccines Aged Out No [...] Comments COLONOSCOPY Routine 10/22/2024 8:48 AM EDT HEPATITIS C AB W/REFL TO HCV RNA, QN, PCR Routine 06/29/2024 10:47 AM EDT Encounter for preventive care HIV 1/2 ANTIGEN/ANTIBODY, FOURTH GENERATION W/RFL Routine 06/29/2024 10:47 AM EDT Encounter for preventive care LIPID PANEL, STANDARD Routine 06/29/2024 10:47 AM EDT Encounter for preventive care from Last 3 Months or Most Recently Relevant to Health Maintenance Results * Colonoscopy (10/22/2024 8:48 AM EDT) Anatomical Region Laterality Modality Endoscopy us Historical Provider ENDOSCOPY PROCEDURE ORDER JOSE Final Result * Hepatitis C Antibody with Reflex to HCV, RNA, Quantitative, Real-Time PCR (06/29/2024 10:47 AM EDT) Hepatitis C Antibody Nonreactive Nonreactive [facility] Comment:Antibodies to HCV no t detected; does not exclude early acuteHCV infection. Blood Venous blood specimen / Unknown 06/29/2024 10:47 AM EDT 06/29/2024 1:24 PM EDT us Autumn Calderon MD LAB BLOOD ORDERABLES Final Result [facility] [address] [place] [phone] * HIV-1/2 Antigen and Antibodies, Fourth Generation, with Reflexes (06/29/2024 10:47 AM EDT) HIV AB/AG Nonreactive Nonreactive [facility] Comment:HIV-1 p24 Ag and/or HIV-1/HIV-2 Ab not detected.A test result that is nonreactive does not exclude thepossibility of exposure to or infection with HIV-1 and/orHIV-2. Nonreactive results in this assay for individualswith prior exposure to HIV-1 and/or HIV-2 may be due toantigen and antibody levels that are below the limit ofdetection of this assay.The [place] HIV Ag/Ab Combo assay result andsupplemental assay results should be interpreted inconjunction with the patient's clinical presentation,history and other laboratory results. If the results areinconsistent with clinical evidence, additional testing issuggested to confirm the result. Blood Venous blood specimen / Unknown 06/29/2024 10:47 AM EDT 06/29/2024 1:24 PM EDT Autumn Calderon MD LAB BLOOD ORDERABLES Final Result [facility] [address] [place] [address] [phone] * (ABNORMAL) Lipid Panel, Standard (06/29/2024 10:47 AM EDT) Pathologist [facility] Triglycerides 71 <150 mg/dL [facility] Comment:Desirable Triglyceri de: less than 150 mg/dLBorderline High Triglyceride 150-199 mg/dLHigh Triglyceride: 200-499 mg/dLVery High Triglyceride: greater than or equal to 5OO mg/dL Cholesterol 183 <200 mg/dL [facility] Comment:Desirable Cholestero l: less than 200 mg/dLBorderline High Cholesterol: 200-239 mg/dLHigh Cholesterol: greater than 239 mg/dL LDL Cholesterol Calculated 128(H) <100 mg/dL [facility] Comment:Desirable LDL: less than 100 mg/dLNear Optimal/Above Optimal LDL: 110- 129 mg/dLBorderline High LDL: 130-159 mg/dLHigh LDL: 160-189 mg/dLVery High LDL: greater than or equal to 190 mg/dL HDL Cholesterol 41 >40 mg/dL [facility] Comment:Desirable HDL: great er than 40 mg/dL Note: This HDL assay may give artificially low results in patients with liver disease. Blood Venous blood specimen / Unknown 06/29/2024 10:47 AM EDT 06/29/2024 1:24 PM EDT Autumn Calderon MD LAB BLOOD ORDERABLES Final Result [facility] [address] [place] [phone] from Last 3 Months or Most Recently Relevant to Health Maintenance Insurance [facility] C3 Care Teams Elementary Instructional Coach Relationship Specialty Start Date End Date Autumn Wilson MD [address] [place] [phone] PCP - General Internal Medicine 06/29/22
[2024-12-06 13:58] LABS: Alanine Aminotransferase 29 U/L (0-40); Albumin Level 4.4 g/dL (3.5-5.0); Alkaline Phosphatase 99 U/L (39-117); Anion Gap 9 (12-20); Aspartate Amino Transferase 25 U/L (5-37); Blood Urea Nitrogen 16 mg/dL (9-16); Calcium 9.1 mg/dL (8.4-10.2); Carbon Dioxide 25 mmol/L (22-29); Chloride 110 mmol/L (96-108); Estimated Glomerular Filt Rate > 60; Potassium 4.1 mmol/L (3.3-5.1); Sodium 140 mmol/L (135-145); Total Protein 7.3 g/dL (6.5-8.0)
== END 2024-12-06 10:48 | disposition home or self-care (01) ==
LOC: HO.HHCL 10:47
PROVIDERS: PCP Internal Medicine; Visit Provider Internal Medicine
DX: R79.89 Other specified abnormal findings of blood chemistry (principal)
CPT/HCPCS: 36415; 80048; 80076